=== PATIENT | female | born 1995 | race African-American/Black ===

== ENCOUNTER 2023-08-05 16:46 | Inpatient (IN) | payer OTHER, SELFPAY ==
[2023-08-05] VITALS (8 sets, daily range): BP systolic 121–159; BP diastolic 75–97; PULSE 52–62; BMI 26.8
[2023-08-05 11:50] LABS: % Basophils 0.3 % (0-2); % Eosinophils 0.1 % (0-6); % Immature Granulocytes 0.3 % (0-0.5); % Monocytes 6.4 % (1.7-9.3); % Neutrophils 80.9 % (42.2-75.2); Absolute Lymphocytes 1.2 10^3/uL (1.2-3.4); Absolute Monocytes 0.6 10^3/uL (0.1-0.6); Absolute Neutrophils 8.1 10^3/uL (1.4-6.5); Hematocrit 33.5 % (37.0-47.0); Hemoglobin 11.3 g/dL (12.0-16.0); Mean Corp Hgb Conc. 33.7 g/dL (33.0-37.0); Mean Corpuscular Volume 91.8 fL (81.0-99.0); Nucleated Red Blood Cells % 0 %; Platelet Count 211 10^3/uL (130-400); Red Blood Cell Count 3.65 10^6/uL (4.20-5.40); Red Cell Dist. Width 13.1 % (11.5-14.5)
[2023-08-05 12:05] LABS: ALT (SGPT) 16 U/L (0-35); AST (SGOT) 26 U/L (14-36); Albumin 4.1 g/dl (3.5-5.0); Alkaline Phosphatase 57 U/L (38-126); Blood Urea Nitrogen 9 mg/dl (7-17); Calcium 9.7 mg/dl (8.4-10.2); Carbon Dioxide 19 mmol/L (22-30); Chloride 105 mmol/L (98-107); Glucose 101 mg/dl (70-99); Potassium 3.6 mmol/L (3.5-5.1); Sodium 134 mmol/L (135-145); Total Bilirubin 0.9 mg/dl (0.2-1.3); Total Protein 6.6 g/dl (6.3-8.2); eGFR > 60.00
[2023-08-05 12:06] LABS: Urine Albumin Trace (Neg - Trace); Urine Bilirubin 1+ (Negative); Urine Character Slightly Cloudy (Clear); Urine Color Yellow; Urine Glucose Negative (Negative); Urine Ketone 3+ (Negative); Urine Leukocyte Negative (Negative); Urine Nitrite Negative (Negative); Urine Occult Blood Negative (Negative); Urine Specific Gravity 1.025 (<1.030); Urine Urobilinogen 1+ (Neg - 1+)
--- NOTE | 2023-08-05 12:23 | ED.GENMED ---
History of Present Illness
General
Chief Complaint: Abdominal Pain
Source: patient
Exam Limitations: none
Time Seen by Provider: 08/05/23 12:19
Nursing documentation reviewed up to this point in time: agreed with
History of Present Illness
History of Present Illness:
Patient is a 27 year old female presenting to the emergency department for evaluation of abdominal pain. Patient reports ongoing abdominal pain associated with nausea and vomiting over the past 2 weeks. This initially started after eating tacos
with spicy peppers. She was seen in multiple hospitals over the past 2 weeks. She was started on a course of antibiotics which she has taken very intermittently due to not able to keep them down. She was recently seen in a hospital 2 days ago
where she had normal lab work and a negative abdominal ultrasound and was discharged. She was then seen in the same hospital yesterday where she had a negative CAT scan but was admitted for observation. Patient states she left in the middle the
night.
She came to the hospital today due to persistence of symptoms. She states she is not able to keep anything down. She has not eaten anything in 4 days.
Patient endorses subjective fever/chills. She reports intermittent diarrhea/constipation over the past 2 weeks. Patient denies any urinary symptoms.
Patient denies any recent travel or recent hospitalizations prior to onset of symptoms.
Past History
Past History
ED Past Medical History: Psychiatric
ED Past Surgical History: Other
Social History
Tobacco: Smoker
Alcohol: Occasional
Drug: Marijuana
Personal: Other
Living: with family
Employment: Other
Family History
Family History: Other
Review of Systems
Review of Systems
Allergies reviewed?: Yes
All Other Systems: ROS reviewed and negative except as documented in HPI and ROS
Phy Exam
Physical Exam
Physical Exam:
Vitals: Patient's vital signs are stable. Afebrile
General: Patient is anxious appearing, no acute distress. Nontoxic-appearing
Skin: Warm and dry, no rashes or lesions
Head: Normocephalic, atraumatic
Eyes: Sclera nonicteric. EOMs intact. No nystagmus.
Throat: Protecting airway
Neck: Normal ROM, no cervical spine tenderness, no meningismus
Cardiac: Regular rate and rhythm, no murmurs.
Pulm: Normal respiratory effort, no wheezes, rales, rhonchi heard on exam.
Abdomen: Abdomen soft. Mild epigastric tenderness without rebound tenderness or guarding. No CVA tenderness. No bruising
Extremities: No evidence of cyanosis or edema. Great distal pulses
Neuro: AAOx3. CN II-XII intact. No focal neurologic deficits.
Psychiatric: Anxious
Course
Orders/Labs/Results
Orders:
Orders
08/05/23 11:27
EKG [Electrocardiogram (*1)] Urgent
Reason for Study: Chest Pain
EKG- Treatment ONCE
08/05/23 11:29
CMP [Comprehensive Metabolic Panel] Urgent
Complete Blood Count/With Diff Urgent
HCG, Serum Qualitative Screen Urgent
Comment: ADD ON
Lipase Urgent
Comment: ADD ON
Urinalysis Reflex To Culture Urgent
Date Specimen was Collected: 08/05/23
Time Specimen was Collected: 11:21
08/05/23 12:37
0.9% Sodium Chloride 1000 ml [Nss] 1,000 ml IV BOLUS
Famotidine [Pepcid] 20 mg IV NOW STA
Ketorolac [Toradol] 15 mg IV NOW STA
Ondansetron Injectable [Zofran] 4 mg IV NOW STA
08/05/23 12:38
Add On- LAB Urgent
Tests Added?: serum hcg, lipase
08/05/23 14:33
Morphine Sulfate 2 mg IV NOW STA
Piperacillin/Tazo 3.375 Gram [Zosyn] 3.375 gram in 50 ml IV NOW
08/05/23 16:36
Admit/Transfer Patient As Directed
Co-Sign Provider:
Level of Care: Inpatient admission
Assign to:: Medical/Surgical
Physician / Group: Hospitalist
Diagnosis: Abd pain, anemia
Reason for Hospitalization: Abd pain, anemia
Expected length of stay greater than two midnights?: Yes
ELOS- Estimated Length of Stay in days: 3
I certify the patient meets the requirements for IP care: Yes
08/05/23 16:37
Code Status As Directed
Resuscitation Status: Full Code
08/05/23 17:22
0.9% Sodium Chloride 1000 ml [Nss] 1,000 ml IV 100 mls/hr
Dicyclomine [Bentyl] 20 mg PO BIDPRN PRN
Morphine Sulfate 2 mg IV Q4HPRN PRN
08/05/23 17:22
GASTROINTESTINAL CONSULT Routine
Consulting Provider: Janusz Durant
Was physician already notified: Yes
Reason for consult: Abd pain with new anemia
Stool Culture Routine
MILLER Source: Feces/Stool
Specimen Description:
Stool For WBC Routine
MILLER Source: Feces/Stool
Specimen Description:
Activity As Directed
Activity Level: Ambulate
INT (Intravenous Needle Therapy) As Directed
Comment: Place 2 IV catheters of the largest bore possible until stable
Orthostatic Vital Signs As Directed
Orthostatic VS Frequency: Now
Comment: then every four hours for twenty-four hours
Pneumatic Compression Sleeves As Directed
Type: Knee high
Stool for occult blood [Hemetest Stools] As Directed
Vital Signs As Directed
Frequency: Per unit guidelines
DX Deep Vein Thrombosis Video Routine
08/05/23 20:00
Pantoprazole [Protonix] 40 mg PO BID
Piperacillin/Tazo 4.5 Gram [Zosyn] 4.5 gram in 100 ml IV Q6H
08/05/23 22:00
Trazodone [Desyrel] 100 mg PO HS
08/06/23 05:34
Basic Metabolic Panel IN AM
Complete Blood Count/No Diff IN AM
08/06/23 08:00
Aripiprazole [Abilify] 1 mg PO DAILY
Abnormal Lab Results
08/05/23
11:29
RBC 3.65 L 10^6/uL
(4.20-5.40)
Hgb 11.3 L g/dL
(12.0-16.0)
Hct 33.5 L %
(37.0-47.0)
MPV 11.0 H fL
(7.4-10.4)
Absolute Neuts (auto) 8.1 H 10^3/uL
(1.4-6.5)
Neutrophils % 80.9 H %
(42.2-75.2)
Lymphocytes % 12.0 L %
(20.5-51.1)
Sodium 134 L mmol/L
(135-145)
Carbon Dioxide 19 L mmol/L
(22-30)
Glucose 101 H mg/dl
(70-99)
Urine Ketones 3+ A
(Negative)
Urine Bilirubin 1+ A
(Negative)
08/05/23 11:29
08/05/23 11:29
Vital Signs
Initial and Last Documented VS:
Initial Vital Signs
Temp Pulse Resp BP Pulse Ox
98.6 F 61 10 159/81 100
08/05/23 11:15 08/05/23 11:15 08/05/23 11:15 08/05/23 11:15 08/05/23 11:15
Last Documented Vital Signs
Temp Pulse Resp BP Pulse Ox
97.8 F 57 16 108/68 98
08/06/23 07:30 08/06/23 07:30 08/06/23 07:30 08/06/23 07:30 08/06/23 08:00
MDM/Problems Addressed
Differential Diagnosis Includes:
Not limited to: GERD, IBS, colitis, gastritis, biliary colic, pancreatitis
MDM/Problems Addressed:
27-year-old female presenting to the emergency department w/ persistent abdominal discomfort associate with nausea and vomiting over the past few weeks. She was seen at [facility]'s emergency department 3 times past week admitted last night and
then left AMA. Per patient�she has been unable to keep down any food/liquid for the past 4 days�unable to take antibiotics are prescribed to her. Vital stable on arrival. Afebrile. Physical exam as above. Nontoxic-appearing. She has mild
epigastric tenderness without any rebound tenderness or guarding. Heart regular rate and rhythm. Lungs clear bilaterally. Labs reviewed. No leukocytosis. Mild anemia hemoglobin 11.3. Mild hyponatremia with sodium of 134. No other clinically
significant abnormalities. Urinalysis shows no signs of infection. EKG without any acute ischemic changes. Will give fluids, Zofran, Toradol. Will try pantoprazole if symptoms related to GERD.
Did obtain records from [facility] and spoke to nurse manager technical services from emergency department. CT scan of the abdomen showed findings consistent with a colitis. She also had an unremarkable pelvic ultrasound, chest x-ray. Given patient's persistent
symptoms and unable to tolerate p.o. intake�will plan to admit to hospital for IV antibiotics and further management. Likely require GI consult. Discussed with hospitalist. Patient admitted to hospital.
Chronic conditions affecting care:
N/A
Acute Exacerbation and/or Progression of Chronic Illness:
N/A
*Pulse Oximetry
Patient hypoxic: no
*EKG
Interpreted by ED Provider?: Yes
EKG Intrepretation Date: 08/05/23
Interpretation: abnormal
Comparison EKG: no comparison EKG present
Heart Rate: 55
Rate: bradycardiac
Rhythm: sinus
Ischemia: no ischemia
*Smoked Meat Preparer Interpretation
Rate: Smoked Meat Preparer- N/A
*Critical Care Note
Total Time (30-74mins, 75-104mins- exclusive of procedures): Not Applicable
Data Reviewed
Review of Other/Old Records Reveals: Labs, Records and Radiology Studies
Source: previous radiology exam and previous hospital records ([facility])
Patient Management
Discussion with other providers: Hospitalist
Escalation/DeEscalation of care consider admission/obs:
Admission for IV antibiotics given unable to tolerate p.o.; further evaluation by GI
ED Attending Note
-
Portions of this chart may have been created with voice recognition software.� Occasional wrong word or��sound alike� substitutions may have occurred due to the inherent limitations of voice recognition software.
Discharge Plan
Departure
Patient Disposition: Admit
Date of Disposition: 08/05/23
Time of Disposition: 14:39
Presentation/result/management discussed w/ accepting MD/DO: Hospitalist
Discharge Problem:
Colitis, Intractable nausea and vomiting
Interventions
Interventions:
*Risk Screen - Suicide Last Done: 08/05/23 12:47
*General Assessment Last Done: 08/05/23 12:47
*Neglect/Abuse Screening Last Done: 08/05/23 12:47
ED- Fall Risk Assessment Last Done: 08/05/23 13:37
*ED COVID-19 Vaccine History Last Done: 08/05/23 12:47
*Nursing Disposition Last Done: 08/05/23 17:19
LD-Pwubnz-Ccyekarscv Assessment Last Done: 08/05/23 13:37
Discharge Date and Time
Discharge Date/Time: 08/05/23 17:19
[2023-08-05] MEDS: NSS 1000 IV ×2 (12:52→18:10)
[2023-08-05] MEDS: PEPCID 20 MG IV (12:53)
[2023-08-05] MEDS: TORADOL 15 MG IV (12:54)
[2023-08-05] MEDS: ZOFRAN 4 MG IV (12:54)
[2023-08-05 13:42] LABS: Lipase 144 U/L (23-300)
[2023-08-05] MEDS: MORPHINE SULFATE 2 MG IV ×3 (14:41→22:48)
[2023-08-05] MEDS: ZOSYN 50 IV (14:42)
[2023-08-05 14:44] LABS: HCG, Serum Qualitative Screen Negative
--- NOTE | 2023-08-05 16:21 | HPS.HSE ---
Family Physician
-
Family Physician: NOT KNOW UNKNOWN - PT DOES
Chief Complaint
-
Abd pain
History of Present Illness
27 year old woman presents with abdominal pain. She states that her ongoing abdominal pain is associated with nausea and vomiting, and has been happening over the past 2 weeks. Pain started after eating tacos with spicy peppers. She has been seen
in multiple hospitals over the past 2 weeks. She was started on a oral antibiotics, which she has taken intermittently, due to not able to keep them down. She was seen in a hospital 2 days ago, where she had normal lab work, a negative abdominal
ultrasound, and was discharged. She then went to the same hospital yesterday, where she had a negative CAT scan, and was admitted for observation. She left in the middle the night. She could not explain to me why she left. She came to today
due to persistence of pain, and not able to keep anything down. She states that has not eaten anything in 4 days. She states that she has had subjective fevers/chills. She reports intermittent diarrhea/constipation over the past 2 weeks. She
denies any urinary symptoms, any recent travel or recent hospitalizations prior to onset of symptoms.
Medical History
Past Medical History
Past Medical History: Reports Other
Additional Past Medical History:
Psychiatric
Past Surgical History: Reports None
Social History
Tobacco: Non-smoker
Alcohol: None
Drug: Marijuana
Personal:
Living: With Family
Employment: Not Employed
Family History
Family History: Not pertinent
Allergies / Home Medications
Allergies reflects when Allergies were last updated in [facility].
Home Medications with original date entered in [facility]
Allergy/Medication List:
Allergies
Allergy/AdvReac Type Severity Reaction Status Date / Time
No Known Allergies Allergy Unverified 08/14/22 14:14
Home Medications
Abilify Tab 1 tab PO DAILY 08/05/23
dicyclomine 20 mg tablet 20 mg PO BIDPRN PRN spasms 08/05/23
pantoprazole 40 mg tablet,delayed release (Protonix) 40 mg PO BID 08/05/23
trazodone 100 mg tablet 100 mg PO HS 08/05/23
Review of Systems
-
History Source: Patient
A 12 point ROS was completed and negative except as noted: Yes
Physical Exam
Vital Signs
Vital Signs
Temp Pulse Resp BP Pulse Ox
98.6 F 60 18 124/81 100
08/05/23 11:15 08/05/23 14:02 08/05/23 14:02 08/05/23 14:47 08/05/23 14:47
Physical Exam
General: Well Developed, Well Nourished, No Apparent Distress, Comfortable and Conversant
HEENT: NormoCephalic, Moist mucous membranes, Atraumatic, Good Dentition, [place] Conjunctivae, No Ptosis, Nose Appears Normal and Ears Appear Normal
Respiratory: Clear
Cardiac: S1/S2 and Regular Rhythm
GI: Soft and Tender (URQ, ULQ. No rebound, No guarding.)
Musculoskeletal: No Clubbing, No Cyanosis and No Edema
Skin: Warm and Dry; No Rash or Jaundice
Neuro: Awake, Alert, Oriented and AO x 3
Psych: Calm
Laboratory Results
-
08/05/23 11:29
08/05/23 11:29
Laboratory Results
Total Bilirubin 0.9 mg/dl (0.2-1.3) 08/05/23 11:29
AST 26 U/L (14-36) 08/05/23 11:29
ALT 16 U/L (0-35) 08/05/23 11:29
Alkaline Phosphatase 57 U/L (38-126) 08/05/23 11:29
Lipase 144 U/L (23-300) 08/05/23 11:29
Data Reviewed
-
Lab Data: Labs Reviewed by me
Impression/Plan
-
IMPRESSION:
27 woman with abd pain and the following significant findings
H/H 11.3/33.5, baseline appears to be 12.8/37.2
Na 134
ECG sinus john
PLAN:
1. Abd pain, with prior dx of colitis, Upper abd pain, and anemia, concern for bleeding ulcer
Guaiac stools
GI consult
IV abx for colitis
Stool cultures/analyses
2. Hyponatremia - likely hypovolemic hyponatremia
Saline
Re-check in am
3. ECG with sinus john - likely incidental finding without clinical significance
Full code
VCD for DVTp
[2023-08-05] MEDS: BENTYL 20 MG PO (18:17)
--- NOTE | 2023-08-05 19:44 | PTCARENOTE ---
Patient admitted from ER into room 412-01. Vital signs stable. Morphine 2 mg IV administered for pain. Rates pain in bilateral upper abdomen 10/10 on pain scale. Started on NSS IV at 100 mls/hour. Explained plan of care to patient. Reviewed use of
call man, television and bed controls. Patient verbalizes understanding of all teaching. Patient also understands to save her stool for heme testing and for a specimen. Clear liquid diet at this time. Tolerated dinner well.
--- NOTE | 2023-08-05 20:03 | PTCARENOTE ---
Sent 6 prescriptions to pharmacy. Patient will need them returned at discharge. No narcotics or other controlled substances.
[2023-08-05] MEDS: PROTONIX 40 MG PO (20:58)
[2023-08-05] MEDS: ZOSYN 100 IV (20:58)
[2023-08-05] MEDS: DESYREL 100 MG PO (22:47)
[2023-08-06] MEDS: ZOSYN 100 IV ×4 (02:48→20:30)
[2023-08-06] MEDS: NSS 1000 IV ×2 (05:58→16:23)
[2023-08-06 06:10] LABS: Blood Urea Nitrogen 7 mg/dl (7-17); Calcium 8.6 mg/dl (8.4-10.2); Carbon Dioxide 24 mmol/L (22-30); Chloride 109 mmol/L (98-107); Estimated Creatinine Clearance 84 ml/min; Glucose 93 mg/dl (70-99); Potassium 3.7 mmol/L (3.5-5.1); Sodium 138 mmol/L (135-145); eGFR > 60.00
[2023-08-06 06:11] LABS: Hematocrit 30.2 % (37.0-47.0); Mean Corp Hgb Conc. 33.1 g/dL (33.0-37.0); Mean Corpuscular Hgb 30.9 pg (27.0-31.0); Mean Corpuscular Volume 93.2 fL (81.0-99.0); Mean Platelet Volume 11.2 fL (7.4-10.4); Platelet Count 181 10^3/uL (130-400); Red Blood Cell Count 3.24 10^6/uL (4.20-5.40); Red Cell Dist. Width 13.1 % (11.5-14.5); White Blood Cell Count 7.1 10^3/uL (4.8-10.8)
[2023-08-06 07:30] VITALS: BP 108/68; BP 122/78; BP 123/88; BP 140/92; PULSE 49; PULSE 51; PULSE 53
[2023-08-06] MEDS: PROTONIX 40 MG PO ×2 (07:42→22:11)
[2023-08-06] MEDS: BENTYL 20 MG PO ×2 (07:42→22:10)
[2023-08-06] MEDS: ABILIFY 1 MG PO (07:42)
--- NOTE | 2023-08-06 09:09 | W.PN.HOSP.TC ---
Today's Communication/Plan
-
ct a/p
CLD, ADAT
GI consulted
EGD iN AM
pain control, anxiolytics
IVF
Assessment / Plan
Assessment / Plan
Physical Exam
General: Well Developed, Well Nourished, No Apparent Distress, Comfortable and Conversant
HEENT: NormoCephalic, Moist mucous membranes, Atraumatic, Good Dentition, [place] Conjunctivae, No Ptosis, Nose Appears Normal and Ears Appear Normal
Respiratory: Clear
Cardiac: S1/S2 and Regular Rhythm
GI: Soft and Tender (URQ, ULQ. No rebound, No guarding.)
Musculoskeletal: No Clubbing, No Cyanosis and No Edema
Skin: Warm and Dry; No Rash or Jaundice
Neuro: Awake, Alert, Oriented and AO x 3
Psych: Calm
27 woman with consistent abdominal pain
-Either Colitis v Psychosomatic, anxiety
-CT Imaging
-Cont Empiric Abx
-Stool cultures
-GI Consulted
-CLD
-Plan for EGD in AM
-Consider HIDA next or colonoscopy
-ativan prn
-pain control
# Hyponatremia
IVF
resolved
#Marijuana use
-cessation advised due to GI issues
Full code
HSQ
Total time spent on today's encounter was 50 minutes which included time spent in counseling the patient/family regarding diagnosis and treatment plan as listed above, goals of care, and symptom management. Case was discussed with nursing staff,
specialists, and care coordinators/case management. All labs and imaging personally reviewed by me. Remainder the time spent in detailed review of previous records, lab data, imaging, and other medical provider documentation.
Anticipated Discharge: 24 - 48 hours
Subjective/Interval History
-
Date of Service: August 06, 2023
could not tolerate low residue diet; severe pain
Objective Data
-
Labs:
Laboratory Results
08/06/23
05:34
WBC 7.1
Hgb 10.0 L
Hct 30.2 L
Plt Count 181
Sodium 138
Potassium 3.7
Chloride 109 H
Carbon Dioxide 24
BUN 7
Creatinine 1.0
Glucose 93
Calcium 8.6
Vital Signs:
Vital Signs
Temp Pulse Resp BP Pulse Ox
97.8 F 57 16 108/68 98
08/06/23 07:30 08/06/23 07:30 08/06/23 07:30 08/06/23 07:30 08/06/23 08:00
I&O
08/05/23 08/06/23 08/07/23
06:59 06:59 06:59
Intake Total 480 / 480
Balance 480 / 480
Review of Systems
-
History Source: Patient
All other systems: Not reviewed unless documented
Data Reviewed
-
Labs: Labs Reviewed by me
[2023-08-06] MEDS: MORPHINE SULFATE 2 MG IV (11:10)
[2023-08-06] MEDS: ZOFRAN 4 MG IV (11:36)
--- NOTE | 2023-08-06 11:45 | PTCARENOTE ---
Patient's diet advanced this AM from Clear Liquids to Low Residue. Patient was immediately doubled over with abdominal pain. Dr Skinner made aware. Dr Durant on unit and went to see patient bedside. Pain medication and anxiety medications ordered.
See APR. CT Abd/pelvis ordered and diet changed back to Clear Liquids per Dr Skinner orders. at bedside. Patient more comfortable. Will continue to monitor.
[2023-08-06] MEDS: TORADOL 15 MG IV (11:48)
--- NOTE | 2023-08-06 12:08 | CON.GI ---
Consultation
-
Date/Time Consultation Requested: 08/05/23 4:45pm
Date/Time Consultation Performed: 08/06/23 12:10pm
Requesting Provider: Nicholas Leroy
Performing Provider: Janusz Durant
Reason for Consultation: abdominal pain
Medical History
Chief Complaint / HPI
Chief Complaint: abdominal pain
History of Present Illness:
Patient is a 27-year-old female who presents with abdominal pain over the last 2 weeks that has been waxing and waning but unresolved. She has been seen several times at [facility] and underwent CAT scan that showed thickening the left colon and
constipation. She had ultrasound only notable for fibroid. She was felt to have a component of cannabis hyperemesis syndrome. She signed out AMA from the other hospital. She comes now with ongoing abdominal pain. This morning she was feeling
better and her diet was advanced to solid food. About 30 minutes later she began complaining of severe upper abdominal pain right greater than left and severe anxiety. She has a history of schizophrenia and takes Abilify. She does report rare
social use of marijuana. Prior to the last several weeks she rarely had episodes of abdominal pain after which she felt to be episodes of food poisoning. She denies NSAIDs.
Past Medical History
Past Medical History: Other (Schizophrenia, anxiety)
Past Surgical History: None
Social History
Drug: Marijuana (rare social use)
Family History
Family History: Reviewed & Not Pertinent
Allergies / Home Medications
Allergy/AdvReac Type Severity Reaction Status Date / Time
No Known Allergies Allergy Unverified 08/14/22 14:14
�Medication �Instructions �Recorded
Abilify Tab 1 tab PO DAILY 08/05/23
dicyclomine 20 mg tablet 20 mg PO BIDPRN PRN spasms 08/05/23
pantoprazole 40 mg tablet,delayed 40 mg PO BID 08/05/23
release (Protonix)
trazodone 100 mg tablet 100 mg PO HS 08/05/23
Review of Systems
-
All other systems: A 12 pt ROS was Negative except as stated above in HPI
Vital Signs
Temp Pulse Resp BP Pulse Ox
97.8 F 57 16 108/68 98
08/06/23 07:30 08/06/23 07:30 08/06/23 07:30 08/06/23 07:30 08/06/23 08:00
Physical Exam
Exam
General: Other (anxious, rocking in bed holding stomach)
HEENT: Normocephalic and Atraumatic
GI: Soft and Tender (RUQ/epigastric)
Skin: Warm and Dry
Results
WBC 7.1 10^3/uL (4.8-10.8) 08/06/23 05:34
Hgb 10.0 g/dL (12.0-16.0) L 08/06/23 05:34
Hct 30.2 % (37.0-47.0) L 08/06/23 05:34
MCV 93.2 fL (81.0-99.0) 08/06/23 05:34
Plt Count 181 10^3/uL (130-400) 08/06/23 05:34
Absolute Neuts (auto) 8.1 10^3/uL (1.4-6.5) H 08/05/23 11:29
Sodium 138 mmol/L (135-145) 08/06/23 05:34
Potassium 3.7 mmol/L (3.5-5.1) 08/06/23 05:34
Chloride 109 mmol/L (98-107) H 08/06/23 05:34
Carbon Dioxide 24 mmol/L (22-30) 08/06/23 05:34
BUN 7 mg/dl (7-17) 08/06/23 05:34
Creatinine 1.0 mg/dL (0.6-1.0) 08/06/23 05:34
Calcium 8.6 mg/dl (8.4-10.2) 08/06/23 05:34
Total Bilirubin 0.9 mg/dl (0.2-1.3) 08/05/23 11:29
AST 26 U/L (14-36) 08/05/23 11:29
ALT 16 U/L (0-35) 08/05/23 11:29
Alkaline Phosphatase 57 U/L (38-126) 08/05/23 11:29
Lipase 144 U/L (23-300) 08/05/23 11:29
Diagnostic Image Results:
Prior GI Procedures:
EGD:
Colonoscopy:
Assessment / Plan
-
Summary: 27yo female presents with 2 weeks epigastric/RUQ pain recently seen at [facility], signed out AMA. CT shows L colon thickening, US showed fibroid. Eval reported concern for canabis hyperemesis syndrome, but pt reports only rare social
use. Tried eating solid food 08/05 then began with severe RUQ pain
Impression:
RUQ pain
Schizophrenia
Anxiety
Recommendations:
Agree with repeat CT abd/pelvis, see if there is persistent colonic thickening
Plan on EGD in AM to r/o PUD
Keep on clears
Anxiety rx as this is likely magnifying her symptoms
Consider HIDA next or colonoscopy
Advised marijuana cessation
-
-
Thank you for consultation and allowing me to participate in the patient's care. Please call the ammunition storekeeper GI physician during the after hours with any questions or concerns.
[2023-08-06] MEDS: NSS (PRESERVATIVE FREE) 0.5 ML IV (12:26)
[2023-08-06] MEDS: ATIVAN 1 MG IV (12:26)
[2023-08-06 15:00] VITALS: BP 138/83
[2023-08-06] MEDS: DILAUDID 0.25 MG IV ×3 (15:02→22:10)
[2023-08-06] MEDS: CARAFATE 1 GRAM PO (16:20)
[2023-08-06] MEDS: HEPARIN 5000 UNITS SC (16:24)
[2023-08-06] MEDS: DESYREL 100 MG PO (22:10)
[2023-08-06 23:41] VITALS: BP 128/79
[2023-08-07] VITALS (7 sets, daily range): BP systolic 12–138; BP diastolic 70–100
[2023-08-07] MEDS: HEPARIN 5000 UNITS SC ×2 (00:45→16:25)
[2023-08-07] MEDS: NSS 1000 IV ×2 (00:50→16:26)
[2023-08-07] MEDS: ZOSYN 100 IV (01:10)
[2023-08-07] MEDS: DILAUDID 0.25 MG IV ×4 (01:10→21:35)
[2023-08-07 07:57] LABS: Hematocrit 33.8 % (37.0-47.0); Hemoglobin 11.2 g/dL (12.0-16.0); Mean Corp Hgb Conc. 33.1 g/dL (33.0-37.0); Mean Corpuscular Hgb 30.9 pg (27.0-31.0); Mean Corpuscular Volume 93.1 fL (81.0-99.0); Mean Platelet Volume 11.2 fL (7.4-10.4); Platelet Count 188 10^3/uL (130-400); Red Blood Cell Count 3.63 10^6/uL (4.20-5.40); White Blood Cell Count 7.7 10^3/uL (4.8-10.8)
[2023-08-07 08:25] LABS: ALT (SGPT) 21 U/L (0-35); AST (SGOT) 29 U/L (14-36); Albumin 3.7 g/dl (3.5-5.0); Alkaline Phosphatase 48 U/L (38-126); Blood Urea Nitrogen 6 mg/dl (7-17); Calcium 9.1 mg/dl (8.4-10.2); Carbon Dioxide 23 mmol/L (22-30); Chloride 107 mmol/L (98-107); Estimated Creatinine Clearance 84 ml/min; Glucose 93 mg/dl (70-99); Potassium 3.6 mmol/L (3.5-5.1); Sodium 137 mmol/L (135-145); Total Bilirubin 0.7 mg/dl (0.2-1.3); Total Protein 5.9 g/dl (6.3-8.2); eGFR > 60.00
--- NOTE | 2023-08-07 08:56 | W.PN.HOSP.TC ---
Today's Communication/Plan
-
see bold
Assessment / Plan
Assessment / Plan
Pt seen and examined with nurse Candice Carroll present at bedside:
Gen: NAD, AAOx3.
Eyes: EOMI, PERRLA, no scleral icterus.
Neck: supple.
CV: RRR, +S1/S2, no m/r/g.
Resp: CTAB, no rales, wheezes, or rhonchi.
Abd: +BS, soft, RUQ and epigastric TTP, ND
Skin: No rashes.
Neuro: CN 2-12 intact, non-focal.
Psych: Normal mood and affect.
CT A/P w/IV 08/06/23: Markedly limited evaluation of intestinal tract without oral contrast as well as a result of marked paucity of intra-abdominal fat, without findings to suggest intestinal obstruction. No free air. Small volume free fluid in the
dependent true pelvis of uncertain etiology, possibly the sequela of recently ruptured adnexal/ovarian cyst. Markedly limited evaluation of virtually completely empty, unopacified urinary bladder. Cannot exclude small hiatal hernia. Mild
hepatomegaly.
Abdominal pain':
-CT A/P (no PO contrast) without colitis, afebrile, no leukocytosis, hemodynamically stable
-GI following, EGD today
-stop abx as no evidence of infection
-pain control with Toradol (no indication for narcotics)
Other problems:
Hyponatremia, resolved with IVFs
Marijuana use: cessation advised due to GI issues
FULL/Heparin
Anticipated Discharge: Within 24 hours
Subjective/Interval History
-
Date of Service: August 07, 2023
Reports anxiety and waves of RUQ and epigastric abd pain.
Objective Data
-
Labs:
Laboratory Results
08/07/23
07:33
WBC 7.7
Hgb 11.2 L
Hct 33.8 L
Plt Count 188
Sodium 137
Potassium 3.6
Chloride 107
Carbon Dioxide 23
BUN 6 L
Creatinine 1.0
Glucose 93
Calcium 9.1
Total Bilirubin 0.7
AST 29
ALT 21
Alkaline Phosphatase 48
Vital Signs:
Vital Signs
Temp Pulse Resp BP Pulse Ox
98.5 F 52 20 136/77 99
08/07/23 07:39 08/07/23 07:39 08/07/23 07:39 08/07/23 07:39 08/07/23 07:39
I&O
08/06/23 08/07/23 08/08/23
06:59 06:59 06:59
Intake Total 480 / 480 480 / 480
Balance 480 / 480 480 / 480
[2023-08-07] MEDS: ZOSYN IV (09:11)
[2023-08-07] MEDS: ABILIFY PO (09:13)
[2023-08-07] MEDS: HEPARIN SC ×3 (09:14→23:05)
[2023-08-07] MEDS: PROTONIX PO (09:15)
--- NOTE | 2023-08-07 10:00 | PTCARENOTE ---
Pt is off the floor at this time for EGD.
--- NOTE | 2023-08-07 10:10 | W.PN.UPDATE ---
Update Note
Progress Note Update
EGD done
Grade A esophagitis- bx'd
Erythema cardia- bx'd
Bx taken r/o HP and celiac
REC:
Resume regular diet
Await path
CT scan was markedly limited but did show some free pelvic fluid
If recurrent pain, consider Learning [employer] Instructor consult next
Also consider HIDA scan
--- NOTE | 2023-08-07 11:18 | CM ---
Patient seen bedside with , initial assessment completed. Patient resides with in an apartment, no DME, VN, or SNF, independent with ADLs/IADLS. Patient reports she does have a PCP, reports she is unsure of PCP name as she does not go
to doctors frequently. Patient confirms pharmacy used [facility]. Patient inquiring about family planning and information regarding assistance in getting other than IVF. [facility] CM will continue to
follow for discharge planning needs.
Plan; home no needs anticipated.
[2023-08-07] MEDS: ABILIFY 1 MG PO (11:28)
[2023-08-07] MEDS: PROTONIX 40 MG PO ×2 (11:28→20:29)
[2023-08-07] MEDS: TORADOL 15 MG IV (11:55)
[2023-08-07] MEDS: BENTYL 20 MG PO (11:55)
[2023-08-07] MEDS: ZOFRAN 4 MG IV (12:42)
[2023-08-07] MEDS: ATIVAN 1 MG IV (12:59)
[2023-08-07] MEDS: NSS (PRESERVATIVE FREE) 0.5 ML IV (12:59)
--- NOTE | 2023-08-07 13:05 | PTCARENOTE ---
Pt returned from EGD and took two small pills orally with sip of gingerale and shortly after was writhing in pain / screaming reporting 10/10 sharp RUQ pain which she states is the same pain that initially brought her in. Toradol and bentyl given at
1155. Pt is vomiting frothy emesis spotted with what appears to be maroon colored blood. Zofran given at 1242. Dr. Durant and Dr. Liang notified and Dr. Durant is planning to come to bedside to speak with patient. Pt extremely anxious, pacing in room
and hallway yelling. Pt agreeable to take IV ativan at 1300.
--- NOTE | 2023-08-07 13:21 | W.PN.UPDATE ---
Update Note
Progress Note Update
Called back to see pt due to severe abd pain even prior to eating
Writhing in pain in bed with emesis basin
REC:
Check HIDA/CCK
Resume dilaudid 0.25mg q3h
Diet as tolerated
Await path
--- NOTE | 2023-08-07 14:06 | PTCARENOTE ---
Pt is off the floor for Hida scan.
[2023-08-07] MEDS: COMPAZINE 10 MG IV (17:59)
--- NOTE | 2023-08-07 20:08 | PTCARENOTE ---
Addendum entered by Mary Carroll RN 08/07/23 20:09:
Dilaudid brought pain down to 8/10 from 10 and patient somewhat more calm, lying in bed. Pt requested dilaudid again at 1750 and it was administered.
Original Note:
Pt returned to floor after being unable to tolerate Hida scan due to vomiting and pain. IV dilaudid administered at 1420 upon return.
[2023-08-07] MEDS: DESYREL 100 MG PO (21:35)
[2023-08-08] MEDS: DILAUDID 0.25 MG IV (01:36)
[2023-08-08] MEDS: NSS 1000 IV (03:56)
--- NOTE | 2023-08-08 09:09 | W.PN.HOSP.TC ---
Today's Communication/Plan
-
d/c if HIDA unremarkable
Assessment / Plan
Assessment / Plan
Pt seen and examined with nurse Kortney Engle present at bedside:
Gen: NAD, AAOx3.
Eyes: EOMI, PERRLA, no scleral icterus.
Neck: supple.
CV: remains RRR, +S1/S2, no m/r/g.
Resp: remains CTAB, no rales, wheezes, or rhonchi.
Abd: +BS, soft, mild RUQ and epigastric TTP, ND
Skin: No rashes.
Neuro: CN 2-12 intact, non-focal.
Psych: Normal mood and affect.
CT A/P w/IV 08/06/23: Markedly limited evaluation of intestinal tract without oral contrast as well as a result of marked paucity of intra-abdominal fat, without findings to suggest intestinal obstruction. No free air. Small volume free fluid in the
dependent true pelvis of uncertain etiology, possibly the sequela of recently ruptured adnexal/ovarian cyst. Markedly limited evaluation of virtually completely empty, unopacified urinary bladder. Cannot exclude small hiatal hernia. Mild
hepatomegaly.
Abdominal pain':
-CT A/P (no PO contrast) without colitis, afebrile, no leukocytosis, hemodynamically stable
-GI following
-EGD 08/07/23: Grade A esophagitis- bx'd, Erythema cardia- bx'd, Bx taken r/o HP and celiac
-HIDA today
Other problems:
Hyponatremia, resolved with IVFs
Marijuana use: cessation advised due to GI issues
FULL/Heparin
Anticipated Discharge: Today
Subjective/Interval History
-
Date of Service: August 08, 2023
Patient reports minimal abdominal pain and is asking to go home at this time.
Objective Data
-
Vital Signs:
Vital Signs
Temp Pulse Resp BP Pulse Ox
98 F 46 16 118/70 98
08/07/23 23:49 08/07/23 23:49 08/07/23 23:49 08/07/23 23:49 08/07/23 23:49
I&O
08/07/23 08/08/23 08/09/23
06:59 06:59 06:59
Intake Total 480 / 480 2810 / 2810
Output Total 200 / 200
Balance 480 / 480 2610 / 2610
--- NOTE | 2023-08-08 09:21 | PTCARENOTE ---
2mg morphine given IVP in nuc med at 0915; VS pre administration BP 138/94 HR 109 96% RA; Post administration VS BP143/93 HR 74 100% RA
[2023-08-08 11:30] VITALS: BP 139/87
[2023-08-08] MEDS: PROTONIX 40 MG PO ×2 (11:36→19:49)
[2023-08-08] MEDS: ABILIFY 1 MG PO (11:36)
[2023-08-08] MEDS: HEPARIN 5000 UNITS SC ×2 (11:37→15:48)
[2023-08-08] MEDS: BENTYL 20 MG PO (12:48)
--- NOTE | 2023-08-08 13:00 | PTCARENOTE ---
Patient returned for HIDA scan and ate lunch. Patient states, 'I feel good. I was able to keep my food down. I want to go home.' 'When can I go home?'
--- NOTE | 2023-08-08 13:00 | PTCARENOTE ---
Patient crying, rocking back and forth in bed, wrenching into basin. Patient vomited small amount of food. Patient states, 'Help me, Help me. I need Tylenol for my menstrual cramps, medication for my nausea.' Patient yelling and moaning, holding
kpad on stomach. IV needs to be restarted. 1330 Tylenol, Ativan and Zofran given for pain, nausea and anxiety. 1345 Patient now lying flat on her stomach, sleeping with no s/s of discomfort.
--- NOTE | 2023-08-08 13:15 | W.PN.GI.CBS2 ---
Today's Communication / Plan
-
Please see assessment and plan for details.
Assessment / Plan
-
1. Abdominal pain: With some biliary component, with CT scan and endoscopy, and labs otherwise unremarkable, with abnormal HIDA scan with only trace amount of tracer in gallbladder, likely from injection yesterday, still abnormal response today. I
think that the severity of her symptoms is likely more related to in part her anxiety as she states to me that she feels very anxious when she has pain. Her exam is relatively benign, has no fever or leukocytosis. Surgery has been consulted for
possible chronic cholecystitis, await their evaluation, could consider further imaging such as ultrasound, and possibly pelvic ultrasound given small mount of fluid seen in the pelvis on CT scan. Would continue supportive care, anxiolytics etc.
Subjective
Subjective
Date of Service: August 08, 2023
Patient still complaining of pain and vomiting, has been doing okay though after eating had recurrent severe pain. She describes as sharp, epigastric with some radiation to the right side and back.
Objective
Data Reviewed
Laboratory Data:
Laboratory Results
08/07/23 07:33
08/07/23 07:33
Laboratory Results
Total Bilirubin 0.7 mg/dl (0.2-1.3) 08/07/23 07:33
AST 29 U/L (14-36) 08/07/23 07:33
ALT 21 U/L (0-35) 08/07/23 07:33
Alkaline Phosphatase 48 U/L (38-126) 08/07/23 07:33
Lipase 144 U/L (23-300) 08/05/23 11:29
Vital Signs and I&O:
Vital Signs
Temp Pulse Resp BP Pulse Ox
98.6 F 51 16 139/87 100
08/08/23 11:30 08/08/23 11:30 08/08/23 11:30 08/08/23 11:30 08/08/23 11:30
I&O
08/07/23 08/08/23 08/09/23
06:59 06:59 06:59
Intake Total 480 / 480 2810 / 2810
Output Total 200 / 200
Balance 480 / 480 2610 / 2610
Physical Exam
Physical Exam
General: NAD
Abdomen: normal bowel sounds, soft, mild epigastric tenderness, no masses or bruits, no ascites
[2023-08-08] MEDS: TYLENOL 650 MG PO ×2 (13:36→19:50)
[2023-08-08] MEDS: ZOFRAN 4 MG IV ×2 (13:38→19:53)
[2023-08-08] MEDS: ATIVAN 1 MG IV ×2 (13:40→19:53)
[2023-08-08] MEDS: NSS IV (14:21)
[2023-08-08 15:40] VITALS: BP 138/84
[2023-08-08] MEDS: TORADOL 15 MG IV ×2 (15:48→21:48)
--- NOTE | 2023-08-08 16:25 | PTCARENOTE ---
Patient was sleeping, then woke when RN was in room. Patient states, 'I am in so much pain. I have menstrual pain on top of my abdominal pain.' RN reminded patient she received Tylenol, Bentyl and Toradol for pain already. Patient jumped out of bed
and confronted RN. Patient was yelling that the doctors have not found out what is wrong with her and she is just going to leave the hospital. Patient was verbally aggressive and demanding RN tell her what is going on. RN repeated multiple times the
plan of care. RN asked patient to stop yelling and patient started yelling louder. RN left the room.
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
--- NOTE | 2023-08-08 16:58 | CON.GS ---
Medical History
-
Chief Complaint: Abdominal pain
History of Present Illness:
Patient is a 27 yo F with a PMH notable for Schizophrenia, anxiety, and depression. She states that over the past 2 weeks she has had constant upper abdominal discomfort with intermittent stabbing attacks of pain. Pain worsened by oral intake.
Subjective fevers and chills. Reports constipation. Subjective darker urine. No jaundice. No excessive NSAID use. Currently on PPI. In and out of hospitals signing herself out AMA over the past 2 weeks. GI on board. EGD on 08/04 with mild
esophagitis, mild gastritis (biopsies pending), normal duodenum, no clear evidence of ulcerative disease.
Past Medical History
Past Medical History: Psychiatric (Schizophrenia, anxiety, depression)
Past Surgical History: None
Social History
Tobacco: Non-Smoker
Alcohol: None
Drug: Marijuana
Personal:
Living: With Family
Employment: Not Employed
Family History
Family History: Reviewed & Noncontributory
Allergies / Home Medications
Allergy/AdvReac Type Severity Reaction Status Date / Time
No Known Allergies Allergy Unverified 08/14/22 14:14
�Medication �Instructions �Recorded �Confirmed �Type
Abilify Tab 1 tab PO DAILY 08/05/23 08/05/23 History
dicyclomine 20 mg tablet 20 mg PO BIDPRN PRN spasms 08/05/23 08/05/23 History
pantoprazole 40 mg tablet,delayed 40 mg PO BID 08/05/23 08/05/23 History
release (Protonix)
trazodone 100 mg tablet 100 mg PO HS 08/05/23 08/05/23 History
Review of Systems
-
A 10 point review of systems was completed, and was negative except as per HPI.
Physical Exam
Vital Signs
Temp Pulse Resp BP Pulse Ox
98.7 F 54 18 138/84 100
08/08/23 15:40 08/08/23 15:40 08/08/23 15:40 08/08/23 15:40 08/08/23 15:40
Body Mass Index (BMI) 26.8
Lab Results
08/07/23 07:33
08/07/23 07:33
WBC 7.7 10^3/uL (4.8-10.8) 08/07/23 07:33
Hgb 11.2 g/dL (12.0-16.0) L 08/07/23 07:33
Hct 33.8 % (37.0-47.0) L 08/07/23 07:33
Plt Count 188 10^3/uL (130-400) 08/07/23 07:33
Abs Immat Gran (auto) 0.0 10^3/uL (0-0.05) 08/05/23 11:29
Neutrophils % 80.9 % (42.2-75.2) H 08/05/23 11:29
Physical Exam
General: Well Developed, Well Nourished and No Apparent Distress
HEENT: Normocephalic and Anicteric
Respiratory: Non Labored Respirations
Cardiac: Regular Rhythm
GI: Soft, Non Distended, Tender (Upper abdomen, negative Henry's sign) and Other (Non-peritoneal)
Musculoskeletal: No Edema
Skin: Warm and Dry
Neuro: Nonfocal/Grossly Intact
Data Reviewed
-
CT Scan: Image Personally Visualized and interpreted and Report Reviewed by me
Medical Tests (Nuc Med, Echo etc): Image Personally Visualized and interpreted and Report Reviewed by me
Labs: Labs Reviewed by me
Assessment / Plan
-
Patient is a 27 yo F p/w upper abdominal pain of unknown origin
Differential for abdominal pain remains broad. Unknown exact cause, appears to have a psychological and potential drug seeking aspect to her care. Recommend ultrasound for further workup and evaluation of stones and signs of cholecystitis. HIDA
scan with delayed filling of gallbladder, but ultimately filling ruling out acute cholecystitis. Possible component of chronic cholecystitis. No plans for cholecystectomy at this time.
-- Abdominal ultrasound
-- OK for regular diet
[2023-08-08] MEDS: NSS (PRESERVATIVE FREE) 0.5 ML IV (19:54)
[2023-08-08] MEDS: DESYREL 100 MG PO (21:13)
[2023-08-08] MEDS: FLUSH (NSS) 1 FLUSH IV (21:47)
[2023-08-08 23:04] VITALS: BP 164/98
[2023-08-09] MEDS: HEPARIN SC (00:09)
[2023-08-09] MEDS: NSS IV (00:46)
[2023-08-09] MEDS: NSS 1000 IV (03:44)
[2023-08-09] MEDS: TYLENOL 650 MG PO (04:08)
[2023-08-09] MEDS: TORADOL 15 MG IV (04:08)
[2023-08-09] MEDS: ATIVAN 1 MG IV (04:09)
[2023-08-09] MEDS: NSS (PRESERVATIVE FREE) 0.5 ML IV (04:09)
--- NOTE | 2023-08-09 07:21 | W.PN.GI.CBS2 ---
Today's Communication / Plan
-
Please see assessment and plan for details.
Assessment / Plan
-
1. Abdominal pain: Unclear etiology, with extensive workup which has been mostly unremarkable including multiple ultrasound, CAT scan, endoscopy and labs. HIDA scan did show delayed filling of gallbladder though did fill ultimately, and has no
significant tenderness now in the right upper quadrant. Again, unclear etiology of pain and vomiting. There is a question of possible cannabis hyperemesis and visceral hypersensitivity, though again unclear what other tests to perform at this
point. Would continue supportive care, trend labs.
Subjective
Subjective
Date of Service: August 09, 2023
Patient sleeping this morning, still complains of abdominal pain overnight, not really tolerating any significant oral intake. No signs of bleeding, fever or chills.
Objective
Data Reviewed
Laboratory Data:
Laboratory Results
08/07/23 07:33
08/07/23 07:33
Laboratory Results
Total Bilirubin 0.7 mg/dl (0.2-1.3) 08/07/23 07:33
AST 29 U/L (14-36) 08/07/23 07:33
ALT 21 U/L (0-35) 08/07/23 07:33
Alkaline Phosphatase 48 U/L (38-126) 08/07/23 07:33
Lipase 144 U/L (23-300) 08/05/23 11:29
Vital Signs and I&O:
Vital Signs
Temp Pulse Resp BP Pulse Ox
98.7 F 47 14 164/98 98
08/08/23 23:04 08/08/23 23:04 08/08/23 23:04 08/08/23 23:04 08/09/23 00:10
I&O
08/08/23 08/09/23 08/10/23
06:59 06:59 06:59
Intake Total 2810 / 2810 490 / 490
Output Total 200 / 200
Balance 2610 / 2610 490 / 490
Physical Exam
Physical Exam
General: NAD
Abdomen: normal bowel sounds, soft, n mild diffuse tenderness, no masses or bruits, no ascites
[2023-08-09 07:45] VITALS: BP 131/83
--- NOTE | 2023-08-09 07:45 | PTCARENOTE ---
Pt. came to the desk at 0745 requesting to be discharged, this nurse explained the discharging process and pt. stated she would not wait for the doctor to discharge her and wanted the AMA form. This nurse brought the pt. the AMA form and the pt.
refused to sign it. Dr. Liang made aware. Pt. IV removed and pt. given her home medication from pharmacy. Pt. requested her medical reports and was given the medical records form. Pt. was not accepting of the process to get her medical records and
yelled and cursed at this nurse and the charge nurse at the nurses station. She called the charge nurse a 'bitch' several times. Security was called but did not arrive prior to pt. leaving the unit. Pt. left behind a blanket which was placed in a
pt. belonging bag and in a container in our clean utility room.
--- NOTE | 2023-08-09 08:45 | CM ---
CM reviewed chart, patient left AMA.
Plan; patient left AMA.
--- NOTE | 2023-08-09 12:38 | W.DCSUMMARY ---
Discharge Summary
Discharge Data
Date of Admission: 08/05/23
Date of Discharge: 08/09/23
-
Pending Results: No
Hospital Course
Primary diagnoses:
Abdominal pain
Secondary diagnoses:
Hyponatremia
Marijuana use
Consultants:
Gastroenterology
Psychiatry
General surgery
Imaging:
Abd U/S:
1. Hepatomegaly and increased echogenicity in the liver, compatible with underlying hepatocellular disease, which most commonly relates to fatty infiltration of the liver.
2. Gallbladder wall thickening likely related to systemic congestion. No sonographic evidence for cholelithiasis or acute cholecystitis.
HIDA scan:
1. Abnormal study. Small amount of activity is present within the gallbladder, likely due to administration of tracer one day prior to imaging. No additional activity enters the gallbladder on 60 minute delayed phase images.
2. Small amount of activity is present within the gallbladder on delayed phase images, however it is unclear if this activity is from yesterday's injection or today's injection.
3. Overall, findings are suggestive of chronic cholecystitis in the correct clinical setting.
CT A/P w/IV 08/06/23: Markedly limited evaluation of intestinal tract without oral contrast as well as a result of marked paucity of intra-abdominal fat, without findings to suggest intestinal obstruction. No free air. Small volume free fluid in the
dependent true pelvis of uncertain etiology, possibly the sequela of recently ruptured adnexal/ovarian cyst. Markedly limited evaluation of virtually completely empty, unopacified urinary bladder. Cannot exclude small hiatal hernia. Mild
hepatomegaly.
Hospital course: 27-year-old female who presented with a chief complaint of abdominal pain as outlined in the H&P done on admission. The patient had an extensive workup including the imaging above. Abdominal ultrasound was notable for findings
likely consistent with fatty infiltration of the liver. There is no evidence of cholelithiasis or acute cholecystitis. HIDA scan was abnormal but the results were affected by an incomplete HIDA scan done the day before. The study was suggestive
of chronic cholecystitis. CT scan of the abdomen pelvis was unremarkable. LFTs and lipase were normal. The patient had no leukocytosis and was afebrile. The patient left AGAINST MEDICAL ADVICE on the morning of August 09, 2023.
Discharge Plan
-
Patient Disposition: Against Medical Advice
Referrals:
UNKNOWN - PT DOES,NOT KNOW [Family Provider] -
Prescriptions:
No Action
trazodone 100 mg Tablet
100 mg PO HS
dicyclomine 20 mg Tablet
20 mg PO BIDPRN PRN (Reason: spasms)
pantoprazole [Protonix] 40 mg Tablet,Delayed Release (Dr/Ec)
40 mg PO BID
Abilify Tab
1 tab PO DAILY
Patient Comments:
08.05.23--patient has no ecw or pharmacy record of this drug
Discharge Date and Time
Discharge Date/Time: 08/09/23 08:13
Print Language: PASHTO
== END 2023-08-09 08:13 | disposition left against medical advice (07) | DRG 392 ==
LOC: 4 EAST ACU 16:46
PROVIDERS: Internal Medicine; ADMITTING PHYSICIAN Internal Medicine; ATTENDING PHYSICIAN Internal Medicine; CONSULT PHYSICIAN Specialist; CONSULT PHYSICIAN Surgery; EMERGENCY PHYSICIAN Emergency Medicine; OTHER PHYSICIAN Psychiatry & Neurology Psychiatry
PROC: 0DB68ZX Excision of Stomach, Via Natural or Artificial Opening Endoscopic, Diagnostic (ICD-10-PCS; 2023-08-07)
PROC: 0DB48ZX Excision of Esophagogastric Junction, Via Natural or Artificial Opening Endoscopic, Diagnostic (ICD-10-PCS; 2023-08-07)
PROC: 0DB98ZX Excision of Duodenum, Via Natural or Artificial Opening Endoscopic, Diagnostic (ICD-10-PCS; 2023-08-07)
PROC: 0DB38ZX Excision of Lower Esophagus, Via Natural or Artificial Opening Endoscopic, Diagnostic (ICD-10-PCS; 2023-08-07)
DX: R10.10 Upper abdominal pain, unspecified (principal); E87.1 Hypo-osmolality and hyponatremia; K81.1 Chronic cholecystitis; K29.50 Unspecified chronic gastritis without bleeding; K76.0 Fatty (change of) liver, not elsewhere classified; F20.9 Schizophrenia, unspecified; F32.A Depression, unspecified; K21.00 Gastro-esophageal reflux disease with esophagitis, without bleeding; Z53.29 Procedure and treatment not carried out because of patient's decision for other reasons; F41.9 Anxiety disorder, unspecified; F12.90 Cannabis use, unspecified, uncomplicated; K59.00 Constipation, unspecified; R19.5 Other fecal abnormalities; R00.1 Bradycardia, unspecified; Z79.899 Other long term (current) drug therapy
CPT/HCPCS: 88305; 74177; 76705; 78226; 80048; 80053; 81003; 83690; 84703; 85025; 85027; 88342; 93005; 96361; 96365; 96375; 99284; A9537; Q9967

== ENCOUNTER 2023-11-19 01:14 | Emergency (ER) | payer SELFPAY ==
[2023-11-19 01:20] VITALS: BP 108/59
[2023-11-19] MEDS: TORADOL 15 MG IV (01:53)
[2023-11-19] MEDS: NSS 1000 IV (01:54)
[2023-11-19] MEDS: ZOFRAN 4 MG IV (01:54)
[2023-11-19 02:03] LABS: % Basophils 0.3 % (0-2); % Eosinophils 1.4 % (0-6); % Immature Granulocytes 0.3 % (0-0.5); % Lymphocytes 17.1 % (20.5-51.1); % Monocytes 6.5 % (1.7-9.3); % Neutrophils 74.4 % (42.2-75.2); Absolute Eosinophils 0.2 10^3/uL (0-0.7); Absolute Lymphocytes 1.9 10^3/uL (1.2-3.4); Absolute Monocytes 0.7 10^3/uL (0.1-0.6); Absolute Neutrophils 8.1 10^3/uL (1.4-6.5); Hematocrit 33.9 % (37.0-47.0); Hemoglobin 11.9 g/dL (12.0-16.0); Mean Corp Hgb Conc. 35.1 g/dL (33.0-37.0); Mean Corpuscular Hgb 30.7 pg (27.0-31.0); Mean Corpuscular Volume 87.4 fL (81.0-99.0); Mean Platelet Volume 10.9 fL (7.4-10.4); Nucleated Red Blood Cells % 0 %; Platelet Count 224 10^3/uL (130-400); Red Blood Cell Count 3.88 10^6/uL (4.20-5.40); Red Cell Dist. Width 13.7 % (11.5-14.5); White Blood Cell Count 10.9 10^3/uL (4.8-10.8)
[2023-11-19 02:05] LABS: Urine Albumin 2+ (Neg - Trace); Urine Bilirubin 1+ (Negative); Urine Character Very Cloudy (Clear); Urine Color Brown; Urine Glucose Negative (Negative); Urine Ketone Trace (Negative); Urine Leukocyte 2+ (Negative); Urine Nitrite Negative (Negative); Urine Occult Blood 4+ (Negative); Urine Specific Gravity 1.025 (<1.030); Urine Urobilinogen Negative (Neg - 1+)
[2023-11-19 02:11] LABS: HCG, Serum Qualitative Screen Negative
[2023-11-19 02:15] LABS: ALT (SGPT) 14 U/L (0-35); AST (SGOT) 21 U/L (14-36); Albumin 4.3 g/dl (3.5-5.0); Alkaline Phosphatase 47 U/L (38-126); Blood Urea Nitrogen 18 mg/dl (7-17); Calcium 9.6 mg/dl (8.4-10.2); Carbon Dioxide 20 mmol/L (22-30); Chloride 110 mmol/L (98-107); Glucose 107 mg/dl (70-99); Lipase 81 U/L (23-300); Potassium 4.2 mmol/L (3.5-5.1); Sodium 141 mmol/L (135-145); Total Bilirubin 0.5 mg/dl (0.2-1.3); Total Protein 6.8 g/dl (6.3-8.2); eGFR > 60.00
--- NOTE | 2023-11-19 02:16 | ED.GENMED ---
History of Present Illness
General
Chief Complaint: Abdominal Pain
Source: patient
Time Seen by Provider: 11/19/23 01:35
History of Present Illness
History of Present Illness:
28-year-old female presents complaining the onset of significant lower back pain lower abdominal pain and rectal pain. She describes it as a burning in nature. She states that she cannot find a comfortable position. She is currently on her
menstrual cycle. No fevers. She was dry heaving and had multiple episodes of formed stool. She states she has had similar discomfort in the past consisting of multiple hospitals and she has not received a formal diagnosis. She is takes Abilify
and trazodone regularly but has not been taking this recently because it makes her too sleepy.
Past History
Past History
ED Past Medical History: Psychiatric
ED Past Surgical History: Other
Social History
Tobacco: Smoker
Alcohol: Occasional
Drug: Marijuana
Personal: Other
Living: with family
Employment: Other
Family History
Family History: Other
Phy Exam
Physical Exam
Physical Exam:
General: Uncomfortable appearing female no acute respiratory distress
Psychiatric exam: Bizarre affect but cooperative
HEENT: Normocephalic atraumatic neck is supple
Heart: Regular rate and rhythm no murmurs
Lungs: Clear no wheeze
Abdomen is soft but tender to the lower abdomen bilaterally no obvious reproducible costovertebral angle tenderness
Extremities: No cyanosis
Course
Orders/Labs/Results
Orders:
Orders
11/19/23 01:35
Test Result ONCE
11/19/23 01:43
0.9% Sodium Chloride 1000 ml [Nss] 1,000 ml IV BOLUS
Ketorolac [Toradol] 15 mg IV NOW STA
Ondansetron Injectable [Zofran] 4 mg IV NOW STA
11/19/23 01:44
CT Abd/pelvis W Iv Cont Urgent
Comment:
Reason For Exam: abdominal pain
11/19/23 01:53
CBC/With Diff [Complete Blood Count/With Diff] Urgent
CMP [Comprehensive Metabolic Panel] Urgent
HCG, Serum Qualitative Screen Urgent
Lipase Urgent
Urinalysis Reflex To Culture Urgent
Date Specimen was Collected: 11/19/23
Time Specimen was Collected: 01:43
Urine Microscopic Reflex Cult Urgent
Urine Culture Urgent
MILLER Source: U
Specimen Description:
Date Specimen was Collected: 11/19/23
Time Specimen was Collected: 01:43
11/19/23 03:02
HYDROmorphone [Dilaudid] 0.5 mg IV NOW STA
Abnormal Lab Results
11/19/23
01:53
WBC 10.9 H 10^3/uL
(4.8-10.8)
RBC 3.88 L 10^6/uL
(4.20-5.40)
Hgb 11.9 L g/dL
(12.0-16.0)
Hct 33.9 L %
(37.0-47.0)
MPV 10.9 H fL
(7.4-10.4)
Absolute Neuts (auto) 8.1 H 10^3/uL
(1.4-6.5)
Absolute Monos (auto) 0.7 H 10^3/uL
(0.1-0.6)
Lymphocytes % 17.1 L %
(20.5-51.1)
Chloride 110 H mmol/L
(98-107)
Carbon Dioxide 20 L mmol/L
(22-30)
BUN 18 H mg/dl
(7-17)
Glucose 107 H mg/dl
(70-99)
Urine Ketones Trace A
(Negative)
Ur Occult Blood Reflex 4+ A
(Negative)
Urine Bilirubin 1+ A
(Negative)
Leukocyte Esterase Rfl 2+ A
(Negative)
Urine RBC >100 A /HPF
(0-2)
Urine Albumin (Reflex) 2+ A
(Neg - Trace)
11/19/23 01:53
11/19/23 01:53
Vital Signs
Initial and Last Documented VS:
Initial Vital Signs
Temp Pulse Resp BP Pulse Ox
97.6 F 85 18 108/59 99
11/19/23 01:20 11/19/23 01:20 11/19/23 01:20 11/19/23 01:20 11/19/23 01:20
Last Documented Vital Signs
Temp Pulse Resp BP Pulse Ox
97.6 F 85 18 108/59 99
11/19/23 01:20 11/19/23 01:20 11/19/23 02:00 11/19/23 01:20 11/19/23 01:20
MDM/Problems Addressed
Differential Diagnosis Includes:
Lower abdominal and back pain. Consider constipation versus colitis versus renal colic versus UTI. Will check labs and urine. CT pending.
*Critical Care Note
Total Time (30-74mins, 75-104mins- exclusive of procedures): Not Applicable
Update Note
Update Note:
Patient currently on menstrual cycle. There is significant amount of blood in the urine. test is negative. Labs reviewed without significant finding. CT pending. Toradol did not improve symptoms. Rechecked patient with female nurse
in the room. On rectal exam there is no hemorrhoids abscess swelling or skin change.
CT reviewed and demonstrates bladder wall thickening to suggest possible cystitis. Will cover with antibiotics.
ED Attending Note
-
Portions of this chart may have been created with voice recognition software.� Occasional wrong word or��sound alike� substitutions may have occurred due to the inherent limitations of voice recognition software.
Discharge Plan
Departure
Patient Disposition: Home (Routine Discharge)
Date of Disposition: 11/19/23
Time of Disposition: 03:31
Patient with high blood pressure during this ER visit?: No
Discharge Problem:
Cystitis, Abdominal pain
Instructions: Urinary Tract Infection, Adult ED, Abdominal Pain
Prescriptions:
New
cefdinir 300 mg capsule
300 mg PO BID Qty: 14 0RF
No Action
trazodone 100 mg Tablet
100 mg PO HS
dicyclomine 20 mg Tablet
20 mg PO BIDPRN PRN (Reason: spasms)
pantoprazole [Protonix] 40 mg Tablet,Delayed Release (Dr/Ec)
40 mg PO BID
Abilify Tab
1 tab PO DAILY
Patient Comments:
08.05.23--patient has no ecw or pharmacy record of this drug
Referrals:
NONE,* [Family Provider] -
Activity Restrictions/Additional Instructions:
Drink plenty of fluids. Use antibiotic as directed. Continue with ibuprofen or Tylenol for pain. Return if worse otherwise follow up with PMD.
Interventions
Interventions:
*Risk Screen - Suicide Last Done: 11/19/23 01:20
*General Assessment Last Done: 11/19/23 01:20
*Neglect/Abuse Screening Last Done: 11/19/23 01:20
ED- Fall Risk Assessment Last Done: 11/19/23 01:38
*ED COVID-19 Vaccine History Last Done: 11/19/23 01:58
OG-Gikzyb-Yjlpzwijkp Assessment Last Done: 11/19/23 01:38
ED-Musculoskeletal Assessment Last Done: 11/19/23 01:38
ED-Skin Assessment Last Done: 11/19/23 01:38
Discharge Date and Time
Print Language: ROMANSH
[2023-11-19 02:17] LABS: Urine Red Blood Cell >100 /HPF (0-2)
[2023-11-19] MEDS: DILAUDID 0.5 MG IV (03:24)
[2023-11-19] MEDS: OMNICEF 300 MG PO (03:44)
[2023-11-19] MEDS: Pyridium 200 MG PO (03:45)
[2023-11-19 05:44] VITALS: BP 100/59
== END 2023-11-19 06:38 | disposition home or self-care (01) ==
LOC: EMR 01:14
PROVIDERS: Physician Assistant; EMERGENCY PHYSICIAN Emergency Medicine
DX: N30.91 Cystitis, unspecified with hematuria (principal); R10.30 Lower abdominal pain, unspecified; F17.200 Nicotine dependence, unspecified, uncomplicated
CPT/HCPCS: 99285; 96374; 96375 ×2; 74177; 80053; 81003; 81015; 83690; 84703; 85025; 87086; Q9967

== ENCOUNTER 2023-12-13 17:26 | Emergency (ER) | payer MEDICAID, SELFPAY ==
[2023-12-13 17:31] VITALS: BP 139/98
[2023-12-13 17:58] LABS: % Basophils 0.4 % (0-2); % Eosinophils 0.7 % (0-6); % Immature Granulocytes 0.3 % (0-0.5); % Lymphocytes 16.2 % (20.5-51.1); % Neutrophils 77.4 % (42.2-75.2); Absolute Basophils 0.1 10^3/uL (0-0.2); Absolute Eosinophils 0.1 10^3/uL (0-0.7); Absolute Lymphocytes 1.9 10^3/uL (1.2-3.4); Absolute Monocytes 0.6 10^3/uL (0.1-0.6); Absolute Neutrophils 9.1 10^3/uL (1.4-6.5); Hematocrit 35.8 % (37.0-47.0); Hemoglobin 12.5 g/dL (12.0-16.0); Mean Corp Hgb Conc. 34.9 g/dL (33.0-37.0); Mean Corpuscular Hgb 30.6 pg (27.0-31.0); Mean Corpuscular Volume 87.5 fL (81.0-99.0); Mean Platelet Volume 10.6 fL (7.4-10.4); Nucleated Red Blood Cells % 0 %; Platelet Count 258 10^3/uL (130-400); Red Blood Cell Count 4.09 10^6/uL (4.20-5.40); White Blood Cell Count 11.7 10^3/uL (4.8-10.8)
[2023-12-13 18:08] LABS: ALT (SGPT) 15 U/L (0-35); AST (SGOT) 20 U/L (14-36); Albumin 4.7 g/dl (3.5-5.0); Alkaline Phosphatase 51 U/L (38-126); Blood Urea Nitrogen 13 mg/dl (7-17); Calcium 9.9 mg/dl (8.4-10.2); Carbon Dioxide 20 mmol/L (22-30); Chloride 108 mmol/L (98-107); Glucose 104 mg/dl (70-99); Lipase 58 U/L (23-300); Potassium 4.1 mmol/L (3.5-5.1); Sodium 141 mmol/L (135-145); Total Bilirubin 0.7 mg/dl (0.2-1.3); Total Protein 7.4 g/dl (6.3-8.2); eGFR > 60.00
--- NOTE | 2023-12-13 18:48 | ED.GENMED ---
History of Present Illness
General
Chief Complaint: Abdominal Symptoms
Source: patient
Exam Limitations: none
Time Seen by Provider: 12/13/23 18:35
History of Present Illness
History of Present Illness:
This is a 28 year old female that comes in with c/o menstrual cramps. States that she started 2 days ago with her period and today the pain has become unbearable. States that she has rectal pressure. States that she does have a history of Ovarian
cyst. States that she has been vomiting for 2 days and can't keep anything down. States that she has not had anything for pain since electronics lead but she vomited this back up. States that she is nauseated, vomiting and a headache. Denies any fever,
chills, chest pain, SOB, diarrhea, dizziness, urinary burning.
Past History
Past History
ED Past Medical History: Psychiatric (Anxiety, Bipolar, Depression, Schizophrenia. ) and Other (Ovarian)
ED Past Surgical History: Other (Jaw surgery)
Social History
Tobacco: Non-smoker
Alcohol: None
Drug: Marijuana
Personal:
Living: with family
Employment: Other
Family History
Family History: Other
Review of Systems
Review of Systems
All Other Systems: ROS reviewed and negative except as documented in HPI and ROS
Constitutional: Reports no symptoms; Denies fever or chills
EENT: Reports no symptoms
Respiratory: Reports no symptoms; Denies cough or trouble breathing
Cardiac: Reports no symptoms; Denies chest pain
ABD/GI: Reports abdominal pain, nausea and vomiting; Denies diarrhea
: Reports no symptoms; Denies dysuria, frequency or urgency
Musculoskeletal: Reports no symptoms
Skin: Reports no symptoms
Neurological: Reports headache; Denies dizzy
Psychiatric: Reports no symptoms
Phy Exam
General Physical Exam
General Presentation: moderate distress
General age: appears stated age
General Skin: warm and dry
General Habitus: normal
General Mental: anxious
General Hydration: dry mucous membranes
ENT Exam
ENT Exam: TM's normal, pharynx normal and neck supple
Eye Exam
Eye Exam: EOMI
Cardiovascular Exam
Cardiovascular Exam: regular rate/rhythm, no edema, no murmur and normal peripheral pulses
Pulmonary Exam
Pulmonary Exam: lungs clear, no respiratory distress, no rales, chest non tender, no crackles, no rhonchi, no wheezing and no cough
Gastrointestinal Exam
Gastrointestinal Exam: normal bowel sounds, soft, no organomegaly, no pulsatile mass, non distended and tender (Generalized tenderness with palpation)
Musculoskeletal Exam
Musculoskeletal Exam: full ROM and no edema
Skin Exam
Skin Exam: normal color, warm/dry, no rash and no petechia
Psychiatric Exam
Psychiatric Exam: anxious
Course
Orders/Labs/Results
Orders:
Orders
12/13/23 17:45
CMP [Comprehensive Metabolic Panel] Urgent
Complete Blood Count/With Diff Urgent
HCG, Serum Qualitative Screen Urgent
Comment: ADD ON
Lipase Urgent
12/13/23 18:46
0.9% Sodium Chloride 1000 ml [Nss] 1,000 ml IV BOLUS
Acetaminophen 1000MG/100Ml [Ofirmev] 1,000 mg in 100 ml IV ONCE
Acetaminophen IV Indication:: ED Narcotic Naive Pt-ONCE
Ketorolac [Toradol] 30 mg IV NOW STA
US Pelvis Only (non-obstetric) Urgent
Comment:
Reason For Exam: abd pain, Rectal pressure
12/13/23 18:47
Add On- LAB Urgent
Tests Added?: HCG
Pantoprazole [Protonix IV] 40 mg IV NOW STA
12/13/23 18:49
Ondansetron Injectable [Zofran] 4 mg IV NOW STA
12/13/23 19:03
Risperidone [Risperdal] 2 mg PO NOW STA
12/13/23 19:14
Diphenhydramine [Benadryl] 50 mg .ROUTE .STK-MED ONE
Diphenhydramine [Benadryl] 50 mg IV NOW STA
12/13/23 20:00
HYDROmorphone [Dilaudid] 1 mg .ROUTE .STK-MED ONE
HYDROmorphone [Dilaudid] 1 mg IV NOW STA
Abnormal Lab Results
12/13/23
17:45
WBC 11.7 H 10^3/uL
(4.8-10.8)
RBC 4.09 L 10^6/uL
(4.20-5.40)
Hct 35.8 L %
(37.0-47.0)
MPV 10.6 H fL
(7.4-10.4)
Absolute Neuts (auto) 9.1 H 10^3/uL
(1.4-6.5)
Neutrophils % 77.4 H %
(42.2-75.2)
Lymphocytes % 16.2 L %
(20.5-51.1)
Chloride 108 H mmol/L
(98-107)
Carbon Dioxide 20 L mmol/L
(22-30)
Glucose 104 H mg/dl
(70-99)
12/13/23 17:45
12/13/23 17:45
WBC very slightly elevated. Carbon dioxide slightly low (patient hyperventilatinig), Glucose nonfasting. Lipase normal at 58
Vital Signs
Initial and Last Documented VS:
Initial Vital Signs
Temp Pulse Resp BP Pulse Ox
98.1 F 99 18 139/98 99
12/13/23 17:31 12/13/23 17:31 12/13/23 17:31 12/13/23 17:31 12/13/23 17:31
Last Documented Vital Signs
Temp Pulse Resp BP Pulse Ox
98.1 F 97 19 120/74 99
12/13/23 17:31 12/13/23 21:54 12/13/23 21:54 12/13/23 21:54 12/13/23 21:54
MDM/Problems Addressed
Differential Diagnosis Includes:
Ruptured ovarian cyst. Ovarian Torsion, Menstrual cramps,
MDM/Problems Addressed:
This is a 28 year old female that comes in with c/o menstrual pain. States that she started with her period 2 days ago and today the pain is severe. States that she is unable to keep any fluid down.
Will check labs, US, given IV fluid, Pain medication.
Back into see patient. Explained that her Ultrasound shows a fibroid. Patient to follow up with her [employer]AL FURNITURE PANEL COVERER. Explained that her pain is out of control with her menstrual cycle and it doesn't match up. Encouraged patient to start her Psychiatric
medication again. Patient States that she is ready to go home. Requesting a prescription for Naproxen and Zofran. Will discharge home.
Chronic conditions affecting care: Psychiatric illness
Acute Exacerbation and/or Progression of Chronic Illness: Psychiatric illness
*Radiology
Radiology exam reviewed: radiology read reviewed (US-Small uterine fibroid. Otherwise essentially unremarkable transabdominal only pelvic ultrasound )
*Pulse Oximetry
Patient hypoxic: no
*EKG
Interpreted by ED Provider?: NA
Rate: EKG- N/A
*Cable Splicer Assistant Interpretation
Rate: Cable Splicer Assistant- N/A
*Critical Care Note
Total Time (30-74mins, 75-104mins- exclusive of procedures): Not Applicable
ED Attending Note
-
Portions of this chart may have been created with voice recognition software.� Occasional wrong word or��sound alike� substitutions may have occurred due to the inherent limitations of voice recognition software.
Discharge Plan
Departure
Patient Disposition: Home (Routine Discharge)
Date of Disposition: 12/13/23
Time of Disposition: 21:30
Patient with high blood pressure during this ER visit?: Yes
Condition: Good
Covid-19: Not Applicable
Discharge Problem:
Fibroid, uterine, Dysmenorrhea
Instructions: Uterine Fibroids (DC), Menstrual Cramps (DC), BLOOD PRESSURE
Prescriptions:
New
ondansetron 4 mg tablet,disintegrating
4 mg PO Q8H PRN (Reason: nausea and vomiting) Qty: 7 0RF
naproxen 500 mg tablet
500 mg PO BID PRN (Reason: Pain) Qty: 10 0RF
No Action
trazodone 100 mg Tablet
100 mg PO HS
pantoprazole [Protonix] 40 mg Tablet,Delayed Release (Dr/Ec)
40 mg PO DAILY
risperidone 2 mg Tablet
2 mg PO BID
Referrals:
NONE,* [Family Provider] -
Activity Restrictions/Additional Instructions:
As discussed, your Ultrasound shows that you have a uterine fibroid. Otherwise ultrasound is normal. Please follow up with the METAL FURNITURE PANEL COVERER for further evaluation. Two prescriptions have been sent to your pharmacy. The first is for Zofran to help with
nausea/vomiting. The second is for Naproxen to help with pain. IF YOU HAVE ANY OTHER CONCERNS PLEASE RETURN TO THE EMERGENCY ROOM
Interventions
Interventions:
*Risk Screen - Suicide Last Done: 12/13/23 19:00
*General Assessment Last Done: 12/13/23 17:31
*Neglect/Abuse Screening Last Done: 12/13/23 19:00
ED- Fall Risk Assessment Last Done: 12/13/23 20:08
*Nursing Disposition Last Done: 12/13/23 21:55
YS-[id number] Assessment Last Done: 12/13/23 19:04
Discharge Date and Time
Discharge Date/Time: 12/13/23 21:57
Print Language: ANGOLAN
[2023-12-13] MEDS: NSS 1000 IV (18:53)
[2023-12-13] MEDS: PROTONIX IV 40 MG IV (18:53)
[2023-12-13] MEDS: ZOFRAN 4 MG IV (18:53)
[2023-12-13] MEDS: OFIRMEV 100 IV (18:54)
[2023-12-13] MEDS: TORADOL 30 MG IV (18:54)
[2023-12-13] MEDS: RISPERDAL 2 MG PO (19:10)
[2023-12-13] MEDS: BENADRYL 50 MG IV (19:15)
[2023-12-13 19:24] LABS: HCG, Serum Qualitative Screen Negative
[2023-12-13] MEDS: DILAUDID 1 MG IV (20:00)
[2023-12-13 21:54] VITALS: BP 120/74
== END 2023-12-13 21:57 | disposition home or self-care (01) ==
LOC: EMR 17:26
PROVIDERS: Emergency Medicine; EMERGENCY PHYSICIAN Emergency Medicine
DX: D25.9 Leiomyoma of uterus, unspecified (principal); N94.6 Dysmenorrhea, unspecified; R10.9 Unspecified abdominal pain; R11.2 Nausea with vomiting, unspecified; R51.9 Headache, unspecified; R03.0 Elevated blood-pressure reading, without diagnosis of hypertension; F41.9 Anxiety disorder, unspecified; F31.9 Bipolar disorder, unspecified; F20.9 Schizophrenia, unspecified; F32.A Depression, unspecified; N83.209 Unspecified ovarian cyst, unspecified side
CPT/HCPCS: 99284; 96374; 96375 ×5; 96361; 76856; 80053; 83690; 84703; 85025

== ENCOUNTER 2024-01-09 10:47 | Emergency (ER) | payer OTHER, SELFPAY ==
--- NOTE | 2024-01-09 10:49 | ED.GENMED ---
History of Present Illness
<Ying Hinton PA-C - Last Filed: 01/09/24 18:06>
General
Chief Complaint: Fainting/Passed Out
Source: patient
Exam Limitations: none
Time Seen by Provider: 01/09/24 10:49
Nursing documentation reviewed up to this point in time: agreed with
History of Present Illness
History of Present Illness:
28-year-old female with past medical history of uterine fibroids, bipolar disorder, anxiety presents emergency department today with concerns of a syncopal episode. Patient reports that she is on day 3 of her current menstrual cycle and reports
that she gets very painful periods. She states that they are always associated with nausea and vomiting as well. Patient states that she had multiple frequent episodes of vomiting and states that she eventually felt faint and lost consciousness.
This episode was preceded by dizziness, lightheadedness, and hot sweats. Patient also concerned because the last episode of vomitus had a few specks of blood. Patient denies epigastric abdominal pain, daily NSAID use, melanic stools, fevers or
chills. Patient denies any history of intra-abdominal surgery. Patient does not follow with DISTRIBUTION SUPERINTENDENT. Patient denies chest pain, shortness of breath. Patient no longer takes risperidone or trazodone and uses marijuana as needed to help with her
symptoms.
Past History
<Ying Hinton PA-C - Last Filed: 01/09/24 18:06>
Past History
ED Past Medical History: Psychiatric (Anxiety, Bipolar, Depression, Schizophrenia. ) and Other (Ovarian)
ED Past Surgical History: Other (Jaw surgery)
Social History
Tobacco: Non-smoker
Alcohol: None
Drug: Marijuana
Personal:
Living: with family
Employment: Other
Family History
Family History: Other
Review of Systems
<Ying Hinton PA-C - Last Filed: 01/09/24 18:06>
Review of Systems
All Other Systems: ROS reviewed and negative except as documented in HPI and ROS
Phy Exam
<Ying Hinton PA-C - Last Filed: 01/09/24 18:06>
Physical Exam
Physical Exam:
General: Patient is anxious and restless but appears non-toxic in no acute distress
Skin: Warm and dry, no rashes or lesions
Head: Normocephalic, atraumatic
Eyes: Sclera non-icteric. EOMs intact.
Cardiac: Regular rate and rhythm, no murmur
Pulm: Normal respiratory effort, no wheezes, rales, rhonchi
Abdomen: No abdominal tenderness to palpation
Neuro: CN II-XII intact, no focal neurologic deficits.
Psychiatric: Anxious affect, akathisia. Patient denies suicidal and homicidal ideation.
Course
<Ying Hinton PA-C - Last Filed: 01/09/24 18:06>
Orders/Labs/Results
Orders:
Orders
01/09/24 11:05
Ketorolac [Toradol] 15 mg IV NOW STA
Ondansetron Injectable [Zofran] 4 mg IV NOW STA
01/09/24 11:06
Electrocardiogram (*1) Urgent
Reason for Study: Syncope
EKG- Treatment ONCE
Ketorolac [Toradol] 15 mg .ROUTE .STK-MED ONE
Ondansetron Injectable [Zofran] 4 mg .ROUTE .STK-MED ONE
01/09/24 11:08
Test Result ONCE
01/09/24 11:26
Comprehensive Metabolic Panel Urgent
HCG, Serum Qualitative Screen Urgent
01/09/24 11:37
Diphenhydramine [Benadryl] 50 mg .ROUTE .STK-MED ONE
Trimethobenzamide [Tigan] 200 mg .ROUTE .STK-MED ONE
01/09/24 11:40
Trimethobenzamide [Tigan] 200 mg IM NOW STA
01/09/24 11:41
Diphenhydramine [Benadryl] 12.5 mg IV NOW STA
01/09/24 11:50
0.9% Sodium Chloride 500 ml [Nss] 500 ml IV BOLUS
01/09/24 12:20
Acetaminophen [Tylenol] 1,000 mg PO NOW STA
Ketorolac [Toradol] 15 mg IV NOW STA
01/09/24 12:37
HYDROmorphone [Dilaudid] 0.5 mg IV NOW STA
01/09/24 13:05
Complete Blood Count/With Diff Urgent
01/09/24 13:35
Add On- LAB Urgent
Tests Added?: hcg qual
01/09/24 14:01
Pantoprazole [Protonix IV] 40 mg IV NOW STA
Abnormal Lab Results
01/09/24 01/09/24
13:05
WBC 13.5 H 10^3/uL
(4.8-10.8)
MCH 31.9 H pg
(27.0-31.0)
MPV 11.6 H fL
(7.4-10.4)
Absolute Neuts (auto) 11.3 H 10^3/uL
(1.4-6.5)
Neutrophils % 84.3 H %
(42.2-75.2)
Lymphocytes % 10.6 L %
(20.5-51.1)
Chloride 108 H mmol/L
(98-107)
Glucose 107 H mg/dl
(70-99)
01/09/24 13:05
01/09/24 11:26
Vital Signs
Initial and Last Documented VS:
Initial Vital Signs
Temp Pulse Resp BP Pulse Ox
98.1 F 69 22 105/61 100
01/09/24 11:15 01/09/24 11:15 01/09/24 11:15 01/09/24 11:15 01/09/24 11:15
Last Documented Vital Signs
Temp Pulse Resp BP Pulse Ox
98.1 F 69 22 105/61 100
01/09/24 11:22 01/09/24 11:22 01/09/24 11:22 01/09/24 11:22 01/09/24 11:22
<Vince Greenwood MD - Last Filed: 01/09/24 11:17>
Orders/Labs/Results
Orders:
Orders
01/09/24 11:05
Ketorolac [Toradol] 15 mg IV NOW STA
Ondansetron Injectable [Zofran] 4 mg IV NOW STA
01/09/24 11:06
Electrocardiogram (*1) Urgent
Reason for Study: Syncope
EKG- Treatment ONCE
Ketorolac [Toradol] 15 mg .ROUTE .STK-MED ONE
Ondansetron Injectable [Zofran] 4 mg .ROUTE .STK-MED ONE
01/09/24 11:08
Test Result ONCE
01/09/24 11:26
Comprehensive Metabolic Panel Urgent
HCG, Serum Qualitative Screen Urgent
01/09/24 11:37
Diphenhydramine [Benadryl] 50 mg .ROUTE .STK-MED ONE
Trimethobenzamide [Tigan] 200 mg .ROUTE .STK-MED ONE
01/09/24 11:40
Trimethobenzamide [Tigan] 200 mg IM NOW STA
01/09/24 11:41
Diphenhydramine [Benadryl] 12.5 mg IV NOW STA
01/09/24 11:50
0.9% Sodium Chloride 500 ml [Nss] 500 ml IV BOLUS
01/09/24 12:20
Acetaminophen [Tylenol] 1,000 mg PO NOW STA
Ketorolac [Toradol] 15 mg IV NOW STA
01/09/24 12:37
HYDROmorphone [Dilaudid] 0.5 mg IV NOW STA
01/09/24 13:05
Complete Blood Count/With Diff Urgent
01/09/24 13:35
Add On- LAB Urgent
Tests Added?: hcg qual
01/09/24 14:01
Pantoprazole [Protonix IV] 40 mg IV NOW STA
Abnormal Lab Results
01/09/24 01/09/24
13:05
WBC 13.5 H 10^3/uL
(4.8-10.8)
MCH 31.9 H pg
(27.0-31.0)
MPV 11.6 H fL
(7.4-10.4)
Absolute Neuts (auto) 11.3 H 10^3/uL
(1.4-6.5)
Neutrophils % 84.3 H %
(42.2-75.2)
Lymphocytes % 10.6 L %
(20.5-51.1)
Chloride 108 H mmol/L
(98-107)
Glucose 107 H mg/dl
(70-99)
01/09/24 13:05
01/09/24 11:26
Vital Signs
Initial and Last Documented VS:
Initial Vital Signs
Temp Pulse Resp BP Pulse Ox
98.1 F 69 22 105/61 100
01/09/24 11:15 01/09/24 11:15 01/09/24 11:15 01/09/24 11:15 01/09/24 11:15
Last Documented Vital Signs
Temp Pulse Resp BP Pulse Ox
98.1 F 69 22 105/61 100
01/09/24 11:22 01/09/24 11:22 01/09/24 11:22 01/09/24 11:22 01/09/24 11:22
<Ying Hinton PA-C - Last Filed: 01/09/24 18:06>
MDM/Problems Addressed
Differential Diagnosis Includes:
Differentials include vasovagal syncope, dysmenorrhea, cannabinoid hyperemesis syndrome, ectopic
MDM/Problems Addressed:
28-year-old female has medical history of bipolar disorder, dysmenorrhea, uterine fibroids presents emergency department today with concerns of syncopal episode. Patient states that she has a lot of pelvic pain currently associated with her period
as well as nausea and vomiting but normally she does not get syncopal episodes with this. She denies chest pain, shortness of breath. On exam, she is well appearing, she has no abdominal tenderness, her heart is regular rate and rhythm with no
murmurs. Her cbc and cmp are unremarkable. Her EKG does not show evidence of arrythmia. Suspect vasovagal syncope in light of patient's persistent vomiting episodes.
Considering patient's episodes of blood in the vomit, patient was given a dose of protonix, suspect sintia slater tear--however patient is hemodynamically stable hgb wnl denies melena. Regarding patient's painful periods, patient does have a
history of fibroids, patient states that she does have a DISTRIBUTION SUPERINTENDENT but she has not seen them in some time and is requesting a referral for anyone. Did provide patient with referral, encouraged follow-up. Patient's pain did take multiple doses of
various medications to manage as well as multiple doses of antiemetics. Suspect component of cannabinoid hyperemesis. Patient has been seen in our emergency department multiple times for this in the past. Return precautions discussed. Patient
stable for discharge.
Chronic conditions affecting care:
Marijuana use, uterine fibroids, anxiety, bipolar disorder, depression
Acute Exacerbation and/or Progression of Chronic Illness:
n/a
<Ying Hinton PA-C - Last Filed: 01/09/24 18:06>
*Pulse Oximetry
Patient hypoxic: no
*Critical Care Note
Total Time (30-74mins, 75-104mins- exclusive of procedures): Not Applicable
Data Reviewed
Review of Other/Old Records Reveals: Records (Reviewed ER physician documentation from 11/19/2023 and 12/13/2023) and Discharge Summary (reviewed discharge summary from 08/09/23)
Source: patient and records
<Ying Hinton PA-C - Last Filed: 01/09/24 18:06>
Patient Management
Escalation/DeEscalation of care consider admission/obs:
Patient stable for dischargr
ED Attending Note
<Ying Hinton PA-C - Last Filed: 01/09/24 18:06>
-
Portions of this chart may have been created with voice recognition software.� Occasional wrong word or��sound alike� substitutions may have occurred due to the inherent limitations of voice recognition software.
<Vince Greenwood MD - Last Filed: 01/09/24 11:17>
ED Attending Note
Patient seen and examined by attending physician: Yes
I performed the substantive portion of visit, reviewed & personally made and approve the management plan that is documented in note by myself or SERENA.: Yes
ED Attending Note:
I have seen and evaluated the patient with a [id number] encounter. I have spoken to the [PA] and involved in the medical history, the physical exam, medical decision making.
Evaluation and management service: agree unless noted differently below.
Results interpretation: agree unless noted differently below.
Patient is a 28-year-old woman with history of bipolar, schizophrenia presenting to the emergency. Patient states that she is currently on her menses. She has had severe pain with associated nausea and vomiting with it. However today after the
multiple episodes she did have an episode of syncope. She does state that she felt lightheaded dizzy prior to the episode. She also has been having hot and cold flashes. The initial emesis was nonbloody however the last 1 prior to her passing out
did have some specks of blood. No melena or hematochezia. This is normal for her menses. She denies any chest pain palpitations. No diarrhea. She does state that she is not taking any of her psychiatric medications as they have not helped. She
has been smoking marijuana. She does live at home with her . She denies any SI or HI. She does not see psychiatrist anymore.
GENERAL: Restless, constantly moving around in stretcher
HEENT: normocephalic, extraocular movements intact, moist oral mucosa
NECK: normal inspection
RESPIRATORY: no respiratory distress, clear to auscultation bilaterally
CARDIOVASCULAR: regular rate and rhythm
ABDOMEN/: soft, non-distended, non-tender to palpation, no rebound or guarding
EXTREMITIES: non-tender, no edema/swelling
NEUROLOGIC: awake and alert, moves all extremities
SKIN: warm
Patient is a 28-year-old woman with history of psychiatric disease presenting to the emergency department with nausea vomiting in the setting of her menses with an episode of syncope. Vitals here are unremarkable and exam does show woman who is
constantly moving but is otherwise reassuring. Likely syncopal event either vasovagal or from dehydration given the nausea vomiting. History and exam not consistent with cardiac syncope. will rule out . Will check basic blood work. Will
give fluids Zofran and Toradol. I did offer patient crisis evaluation so she could talk to our team to find a new psychiatrist however patient declined at this time. Patient is not a harm to herself or others at this time and does not meet any
involuntary criteria. Will symptomatically control patient. Anticipate discharge.
Discharge Plan
Departure
Patient Disposition: Home (Routine Discharge)
Date of Disposition: 01/09/24
Time of Disposition: 14:38
Patient with high blood pressure during this ER visit?: No
Condition: Good
Discharge Problem:
Episode of syncope, Dysmenorrhea
Instructions: Vasovagal Response, Menstrual Cramps (DC)
Prescriptions:
New
pantoprazole [Protonix] 20 mg tablet,delayed release (DR/EC)
20 mg PO DAILY 7 Days Qty: 7 0RF
No Action
trazodone 100 mg Tablet
100 mg PO HS
pantoprazole [Protonix] 40 mg Tablet,Delayed Release (Dr/Ec)
40 mg PO DAILY
risperidone 2 mg Tablet
2 mg PO BID
ondansetron 4 mg tablet,disintegrating
4 mg PO Q8H PRN (Reason: nausea and vomiting) Qty: 7 0RF
naproxen 500 mg tablet
500 mg PO BID PRN (Reason: Pain) Qty: 10 0RF
Referrals:
UNKNOWN - PT NOT,INTERVIEWE [Family Provider] -
Activity Restrictions/Additional Instructions:
Protonix has been sent to your pharmacy. Please take 20 mg of Protonix once daily.
Please return to the emergency department should you experience fevers or chills, intractable nausea or vomiting, chest pain, shortness of breath, or any other signs or symptoms worrisome to you.
Interventions
Interventions:
*Risk Screen - Suicide Last Done: 01/09/24 11:23
*General Assessment Last Done: 01/09/24 11:21
*Neglect/Abuse Screening Last Done: 01/09/24 11:23
ED- Fall Risk Assessment Last Done: 01/09/24 11:23
*ED COVID-19 Vaccine History Last Done: 01/09/24 11:21
*Nursing Disposition Last Done: 01/09/24 14:52
ED- Cardiac Assessment Last Done: 01/09/24 11:23
ED- Neurological Assessment Last Done: 01/09/24 11:23
Discharge Date and Time
Discharge Date/Time: 01/09/24 14:53
Print Language: CROATIAN
--- NOTE | 2024-01-09 10:58 | EDRN ---
Annie HAMILTON in room w/ pt.
[2024-01-09 11:00] VITALS: BMI 25.6
[2024-01-09 11:15] VITALS: BP 105/61
[2024-01-09] MEDS: TORADOL 15 MG IV ×2 (11:15→12:29)
[2024-01-09] MEDS: NSS 500 IV (11:15)
[2024-01-09] MEDS: ZOFRAN 4 MG IV (11:15)
[2024-01-09 11:22] VITALS: BP 105/61
--- NOTE | 2024-01-09 11:30 | EDRN ---
Pt continues to cry out and vomit intermittently and vomits very loudly. Pt admits to using marijuana and stated when asked last used 2 days ago.
[2024-01-09] MEDS: TIGAN 200 MG IM (11:41)
[2024-01-09] MEDS: BENADRYL 12.5 MG IV (11:42)
--- NOTE | 2024-01-09 12:00 | EDRN ---
Pt continues to moan loudly in room in pain and vomiting/retching loudly. Pt asking for pain medication. This RN informed pt that she will speak to PA when PA is available as PA is w/ another pt.
[2024-01-09 12:01] LABS: ALT (SGPT) 16 U/L (0-35); AST (SGOT) 25 U/L (14-36); Albumin 4.7 g/dl (3.5-5.0); Alkaline Phosphatase 61 U/L (38-126); Blood Urea Nitrogen 11 mg/dl (7-17); Calcium 9.7 mg/dl (8.4-10.2); Carbon Dioxide 22 mmol/L (22-30); Chloride 108 mmol/L (98-107); Estimated Creatinine Clearance 90 ml/min; Glucose 107 mg/dl (70-99); Potassium 4.1 mmol/L (3.5-5.1); Sodium 142 mmol/L (135-145); Total Bilirubin 0.6 mg/dl (0.2-1.3); Total Protein 7.4 g/dl (6.3-8.2); eGFR > 60.00
--- NOTE | 2024-01-09 12:25 | EDRN ---
At this time Pt was ambulating in hallway, not vomiting and not moaning in her bare feet as this RN was approaching her room #32. Pt was almost to physician area. Pt informed this RN has her medication and will be right in to administer.
--- NOTE | 2024-01-09 12:30 | EDRN ---
Pt asked what meds she is getting at this time. Pt informed 15 mg of toradol and tylenol po. Pt stated 'I cannot take the tylenol. I am still having nausea and vomiting so tylenol not administered.' Pt was administered toradol though pt stated, 'why
are you giving me the same med that did not work the last time.' Pt requested stronger medication, narcotics for her pain. On flushing IV access w/ saline pt said 'ouch, you flushed that too fast.' Then said 'I want a new nurse. This nurse caused me
pain by flushing my IV too quickly. 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 ' Ying HAMILTON went in just after that after informed about tylenol and toradol as well as pt requesting a narcotic pain medication.
--- NOTE | 2024-01-09 12:40 | EDRN ---
This RN called charge preparation technician and Beryl DE LA ROSA took over care of this pt at this time.
[2024-01-09] MEDS: DILAUDID 0.5 MG IV (12:48)
[2024-01-09 13:13] LABS: % Basophils 0.2 % (0-2); % Eosinophils 0.4 % (0-6); % Immature Granulocytes 0.3 % (0-0.5); % Lymphocytes 10.6 % (20.5-51.1); % Monocytes 4.2 % (1.7-9.3); % Neutrophils 84.3 % (42.2-75.2); Absolute Eosinophils 0.1 10^3/uL (0-0.7); Absolute Lymphocytes 1.4 10^3/uL (1.2-3.4); Absolute Monocytes 0.6 10^3/uL (0.1-0.6); Absolute Neutrophils 11.3 10^3/uL (1.4-6.5); Hematocrit 39.4 % (37.0-47.0); Hemoglobin 13.7 g/dL (12.0-16.0); Mean Corp Hgb Conc. 34.8 g/dL (33.0-37.0); Mean Corpuscular Hgb 31.9 pg (27.0-31.0); Mean Corpuscular Volume 91.8 fL (81.0-99.0); Mean Platelet Volume 11.6 fL (7.4-10.4); Nucleated Red Blood Cells % 0 %; Platelet Count 228 10^3/uL (130-400); Red Blood Cell Count 4.29 10^6/uL (4.20-5.40); Red Cell Dist. Width 12.7 % (11.5-14.5); White Blood Cell Count 13.5 10^3/uL (4.8-10.8)
--- NOTE | 2024-01-09 13:37 | EDRN ---
Pt ambulated down hallway and asked someone for some ice chips at this time then returned to her room.
[2024-01-09] MEDS: PROTONIX IV 40 MG IV (14:18)
[2024-01-09 14:36] LABS: HCG, Serum Qualitative Screen Negative
== END 2024-01-09 14:53 | disposition home or self-care (01) ==
LOC: EMR 10:47
PROVIDERS: Physician Assistant; EMERGENCY PHYSICIAN Student in an Organized Health Care Education/Training Program
DX: R55 Syncope and collapse (principal); N94.6 Dysmenorrhea, unspecified; F12.90 Cannabis use, unspecified, uncomplicated; R11.2 Nausea with vomiting, unspecified; F31.9 Bipolar disorder, unspecified; F41.9 Anxiety disorder, unspecified; Z87.42 Personal history of other diseases of the female genital tract
CPT/HCPCS: 96374; 96375; 96376; 96361; 96372; 99284; 80053; 84703; 85025; 93005

== ENCOUNTER 2024-03-21 17:48 | Emergency (ER) | payer OTHER, SELFPAY ==
[2024-03-21 17:50] VITALS: BP 126/85
--- NOTE | 2024-03-21 19:40 | ED.SKININJ ---
HPI-Injury
General
Chief Complaint: Skin Surface Trauma
Source: patient
Exam Limitations: none
Time Seen by Provider: 03/21/24 17:59
Nursing documentation reviewed up to this point in time: agreed with
History of Present Illness-Injury
Is this injury a work related problem?: No
Is pt an associate of [facility]?: No
Initial Injury comments:
Punched window in anger. Rupa broke and she sustained a laceration to her right dorsal middle finger. Also complains of right wrist pain. Incident occurred today. Brought self to ED for eval. Declines crisis intervention
Past History
Past History
ED Past Medical History: Psychiatric (Anxiety, Bipolar, Depression, Schizophrenia. ) and Other (Ovarian)
ED Past Surgical History: Other (Jaw surgery)
Social History
Tobacco: Non-smoker
Alcohol: None
Drug: Marijuana
Personal:
Living: with family
Employment: Other
Family History
Family History: Other
Review of Systems
Review of Systems
Allergies reviewed?: Yes
All Other Systems: ROS reviewed and negative except as documented in HPI and ROS
Constitutional: Reports no symptoms
Musculoskeletal: Reports joint pain (Pain to right 3rd finger, right wrist)
Skin: Reports other (Laceration to dorsum of right 3rd finger)
Neurological: Reports no symptoms
Psychiatric: Reports no symptoms
Skin Exam
Laceration
Right Dorsal Third Finger:
Length in cm: 1.5
Orientation: vertical
Type of Laceration: simple
Any active bleeding?: no active bleeding
Distal skin color and temperature: normal-warm & good color
Normal distal neurovascular exam: Yes
Range of motion: full
Phy Exam
General Physical Exam
General Presentation: well appearing and no apparent distress
General age: appears stated age
General Skin: warm and dry
General Habitus: normal
General Mental: alert
General Hydration: appears well hydrated
Musculoskeletal Exam
Musculoskeletal Exam: full ROM and neuro vasc intact
Skin Exam
Skin Exam: normal color and warm/dry
Psychiatric Exam
Psychiatric Exam: normal mood/affect
Course
Orders/Labs/Results
Orders:
Orders
03/21/24 18:18
Ibuprofen [Motrin] 600 mg .ROUTE .STK-MED ONE
03/21/24 18:48
Finger(s)/Thumb 2 View Rt [CR Finger(s)/thumb Min 2 Vw Rt] Urgent
Comment:
Reason For Exam: trauma
Wrist, Right 3 Views [CR Wrist - Right Min 3 Views] Urgent
Comment:
Reason For Exam: trauma
Vital Signs
Initial and Last Documented VS:
Initial Vital Signs
Temp Pulse Resp BP Pulse Ox
99.3 F 62 16 126/85 100
03/21/24 17:50 03/21/24 17:50 03/21/24 17:50 03/21/24 17:50 03/21/24 17:50
Last Documented Vital Signs
Temp Pulse Resp BP Pulse Ox
99.3 F 62 16 126/85 100
03/21/24 17:50 03/21/24 17:50 03/21/24 17:50 03/21/24 17:50 03/21/24 17:50
Procedures
Laceration Closure
Right Third Finger:
Status of Wound: clean
Description of Wound Edges: sharp
Preparation: cleaned with saline
Anesthesia: 1% Lidocaine
Wound exploration: with tx- contaminated and no tendon involvement
Type of Closure: single layer closure
Skin Closure Material: 5-0 prolene
*Radiology
Radiology exam reviewed: radiology read reviewed
*Pulse Oximetry
Patient hypoxic: no
*Critical Care Note
Total Time (30-74mins, 75-104mins- exclusive of procedures): Not Applicable
ED Attending Note
-
Portions of this chart may have been created with voice recognition software.� Occasional wrong word or��sound alike� substitutions may have occurred due to the inherent limitations of voice recognition software.
Discharge Plan
Departure
Patient Disposition: Home (Routine Discharge)
Date of Disposition: 03/21/24
Time of Disposition: 19:39
Patient with high blood pressure during this ER visit?: No
Condition: Good
Covid-19: Not Applicable
Discharge Problem:
Finger laceration
Instructions: Laceration Repair With Stitches (DC)
Prescriptions:
No Action
trazodone 100 mg Tablet
100 mg PO HS
pantoprazole [Protonix] 40 mg Tablet,Delayed Release (Dr/Ec)
40 mg PO DAILY
risperidone 2 mg Tablet
2 mg PO BID
ondansetron 4 mg tablet,disintegrating
4 mg PO Q8H PRN (Reason: nausea and vomiting) Qty: 7 0RF
naproxen 500 mg tablet
500 mg PO BID PRN (Reason: Pain) Qty: 10 0RF
pantoprazole [Protonix] 20 mg tablet,delayed release (DR/EC)
20 mg PO DAILY 7 Days Qty: 7 0RF
Referrals:
UNKNOWN - PT DOES,NOT KNOW [Family Provider] -
Activity Restrictions/Additional Instructions:
Sutures can be removed in 7-10 days by your family doctor.
Interventions
Interventions:
*Risk Screen - Suicide Last Done: 03/21/24 17:50
*General Assessment Last Done: 03/21/24 17:50
*Neglect/Abuse Screening Last Done: 03/21/24 17:50
*ED COVID-19 Vaccine History Last Done: 03/21/24 17:50
ED-Skin Assessment Last Done: 03/21/24 18:16
Discharge Date and Time
Print Language: BHUTANESE
Musculoskeletal Injury Exam
Musculoskeletal Injury Exam
Right Wrist:
Pain with Movement?: Moderate
Tender to palpation?: Moderate
Soft tissue swelling?: None
External deformity and angulation?: None
Joint effusion?: None
Contusion?: None
Hematoma-local bleeding into tissue?: None
Strain- Sprain- Tear (Connective tissue injury)?: Moderate
Crepitus with movement?: No
Joint instability?: No
Malalignment/deformity?: No
Range of motion: Full
Distal skin color and temperature: normal-warm & good color
Capillary Refill: normal
Normal distal neurovascular exam?: Yes
Peripheral Pulses: radial (right): 3+
[2024-03-21] MEDS: MOTRIN 600 MG PO (19:58)
== END 2024-03-21 19:58 | disposition home or self-care (01) ==
LOC: EMR 17:48
PROVIDERS: EMERGENCY PHYSICIAN Emergency Medicine
DX: S61.212A Laceration without foreign body of right middle finger without damage to nail, initial encounter (principal); W25.XXXA Contact with sharp glass, initial encounter; M25.531 Pain in right wrist
CPT/HCPCS: 12001; 99283; 73110; 73140

== ENCOUNTER 2024-04-05 23:56 | Emergency (ER) | payer OTHER, SELFPAY ==
[2024-04-06] MEDS: ATIVAN 1 MG IV (00:18)
[2024-04-06] MEDS: ZOFRAN 4 MG IV (00:19)
[2024-04-06] MEDS: NSS 1000 IV (00:19)
[2024-04-06 00:38] LABS: HCG, Serum Qualitative Screen Negative
[2024-04-06] MEDS: HALDOL 2 MG IV (00:39)
[2024-04-06] MEDS: TORADOL 15 MG IV (00:39)
[2024-04-06 00:40] LABS: ALT (SGPT) 19 U/L (0-35); AST (SGOT) 25 U/L (14-36); Albumin 4.4 g/dl (3.5-5.0); Alkaline Phosphatase 63 U/L (38-126); Blood Urea Nitrogen 13 mg/dl (7-17); Calcium 9.6 mg/dl (8.4-10.2); Carbon Dioxide 22 mmol/L (22-30); Chloride 108 mmol/L (98-107); Glucose 118 mg/dl (70-99); Lipase 109 U/L (23-300); Potassium 4.2 mmol/L (3.5-5.1); Sodium 138 mmol/L (135-145); Total Bilirubin 0.4 mg/dl (0.2-1.3); Total Protein 7.1 g/dl (6.3-8.2); eGFR > 60.00
[2024-04-06 00:43] VITALS: BP 124/88
[2024-04-06 00:44] LABS: Hematocrit 36.3 % (37.0-47.0); Hemoglobin 12.3 g/dL (12.0-16.0); Mean Corp Hgb Conc. 33.9 g/dL (33.0-37.0); Mean Corpuscular Hgb 31.2 pg (27.0-31.0); Mean Corpuscular Volume 92.1 fL (81.0-99.0); Mean Platelet Volume 10.2 fL (7.4-10.4); Platelet Count 279 10^3/uL (130-400); Red Blood Cell Count 3.94 10^6/uL (4.20-5.40); Red Cell Dist. Width 13.8 % (11.5-14.5); White Blood Cell Count 10.1 10^3/uL (4.8-10.8)
[2024-04-06 00:45] VITALS: BMI 28.7
--- NOTE | 2024-04-06 01:02 | ED.GENMED ---
History of Present Illness
<Augie Eldridge PA-C - Last Filed: 04/06/24 16:10>
General
Chief Complaint: Abdominal Symptoms
Time Seen by Provider: 04/06/24 00:07
History of Present Illness
History of Present Illness:
28-year-old female presents the emergency department complaining of generalized abdominal pain associated with nausea vomiting and diarrhea. States this began 1 hour after eating a seafood burrito at approximately 4 PM today. She is quite anxious
and writhing around the exam bed, unable to sit still. No prior abdominal surgeries
Past History
<Augie Eldridge PA-C - Last Filed: 04/06/24 16:10>
Past History
ED Past Medical History: Psychiatric (Anxiety, Bipolar, Depression, Schizophrenia. ) and Other (Ovarian)
ED Past Surgical History: Other (Jaw surgery)
Social History
Tobacco: Non-smoker
Alcohol: None
Drug: Marijuana
Personal:
Living: with family
Employment: Other
Family History
Family History: Other
Review of Systems
<Augie Eldridge PA-C - Last Filed: 04/06/24 16:10>
Review of Systems
Allergies reviewed?: Yes
All Other Systems: ROS reviewed and negative except as documented in HPI and ROS
Phy Exam
<Augie Eldridge PA-C - Last Filed: 04/06/24 16:10>
Physical Exam
Physical Exam:
GEN: Anxious, writhing around
HEENT: Oral mucosa moist, no scleral icterus
Cardiac: Regular rate and rhythm
Lung: No respiratory distress, no tachypnea
Abdomen: Soft, generally nontender
MSK: No gross deformity or injuries
Skin: Good color, no pallor or jaundice, no rashes
Neuro: AO x3, moves all extremities freely
Psych: Profoundly anxious, difficult to redirect
Course
<Augie Eldridge PA-C - Last Filed: 04/06/24 16:10>
Orders/Labs/Results
Orders:
Orders
04/06/24 00:08
0.9% Sodium Chloride 1000 ml [Nss] 1,000 ml IV BOLUS
Acetaminophen [Tylenol] 1,000 mg PO NOW STA
Lorazepam [Ativan] 1 mg IV NOW STA
Ondansetron Injectable [Zofran] 4 mg IV NOW STA
04/06/24 00:09
Test Result ONCE
04/06/24 00:20
Comprehensive Metabolic Panel Urgent
HCG, Serum Qualitative Screen Urgent
Lipase Urgent
04/06/24 00:21
Complete Blood Count/No Diff Urgent
04/06/24 00:29
Haloperidol Lactate [Haldol] 2 mg IV NOW STA
04/06/24 00:30
Electrocardiogram (*1) Urgent
Reason for Study: QTc Monitoring
EKG- Treatment ONCE
04/06/24 00:31
Ketorolac [Toradol] 15 mg IV NOW STA
04/06/24 02:21
Acetaminophen 1000MG/100Ml [Ofirmev] 1,000 mg in 100 ml IV ONCE
Acetaminophen IV Indication:: ED Narcotic Naive Pt-ONCE
Abnormal Lab Results
04/06/24 04/06/24
00:20 00:21
RBC 3.94 L 10^6/uL
(4.20-5.40)
Hct 36.3 L %
(37.0-47.0)
MCH 31.2 H pg
(27.0-31.0)
Chloride 108 H mmol/L
(98-107)
Glucose 118 H mg/dl
(70-99)
04/06/24 00:21
04/06/24 00:20
Vital Signs
Initial and Last Documented VS:
Initial Vital Signs
Pulse Resp Pulse Ox
75 26 97
04/05/24 23:57 04/05/24 23:57 04/05/24 23:57
Last Documented Vital Signs
Pulse Resp BP Pulse Ox
75 26 114/77 99
04/05/24 23:57 04/05/24 23:57 04/06/24 02:36 04/06/24 00:15
<Yojana Li, DO - Last Filed: 04/07/24 08:12>
Orders/Labs/Results
Orders:
Orders
04/06/24 00:08
0.9% Sodium Chloride 1000 ml [Nss] 1,000 ml IV BOLUS
Acetaminophen [Tylenol] 1,000 mg PO NOW STA
Lorazepam [Ativan] 1 mg IV NOW STA
Ondansetron Injectable [Zofran] 4 mg IV NOW STA
04/06/24 00:09
Test Result ONCE
04/06/24 00:20
Comprehensive Metabolic Panel Urgent
HCG, Serum Qualitative Screen Urgent
Lipase Urgent
04/06/24 00:21
Complete Blood Count/No Diff Urgent
04/06/24 00:29
Haloperidol Lactate [Haldol] 2 mg IV NOW STA
04/06/24 00:30
Electrocardiogram (*1) Urgent
Reason for Study: QTc Monitoring
EKG- Treatment ONCE
04/06/24 00:31
Ketorolac [Toradol] 15 mg IV NOW STA
04/06/24 02:21
Acetaminophen 1000MG/100Ml [Ofirmev] 1,000 mg in 100 ml IV ONCE
Acetaminophen IV Indication:: ED Narcotic Naive Pt-ONCE
Abnormal Lab Results
04/06/24 04/06/24
00:20 00:21
RBC 3.94 L 10^6/uL
(4.20-5.40)
Hct 36.3 L %
(37.0-47.0)
MCH 31.2 H pg
(27.0-31.0)
Chloride 108 H mmol/L
(98-107)
Glucose 118 H mg/dl
(70-99)
04/06/24 00:21
04/06/24 00:20
Vital Signs
Initial and Last Documented VS:
Initial Vital Signs
Pulse Resp Pulse Ox
75 26 97
04/05/24 23:57 04/05/24 23:57 04/05/24 23:57
Last Documented Vital Signs
Pulse Resp BP Pulse Ox
75 26 114/77 99
04/05/24 23:57 04/05/24 23:57 04/06/24 02:36 04/06/24 00:15
<Augie Eldridge PA-C - Last Filed: 04/06/24 16:10>
MDM/Problems Addressed
MDM/Problems Addressed:
Likely cannabinoid hyperemesis given marked improved w/ haloperidol however food borne gastroenteritis is possible. Unfortunately pt was consistently kinking her IV line and did not receive full fluid bolus, additionally had continued complaints of
pain prolonging her care. Signed out to Dr Li pending further observation/treatment
<Aguie Eldridge PA-C - Last Filed: 04/06/24 16:10>
*Critical Care Note
Total Time (30-74mins, 75-104mins- exclusive of procedures): Not Applicable
ED Attending Note
<Augie Eldridge PA-C - Last Filed: 04/06/24 16:10>
-
Portions of this chart may have been created with voice recognition software.� Occasional wrong word or��sound alike� substitutions may have occurred due to the inherent limitations of voice recognition software.
<Yojana Li DO - Last Filed: 04/07/24 08:12>
ED Attending Note
Patient seen and examined by attending physician: Yes
I performed a history and physical exam of patient and discussed management with resident, I reviewed resident's note and agree with documented findings and plan of care.: Yes
ED Attending Note:
Pt presents with abdominal pain, N/V/D since yesterday evening.
Has had previous episodes of primarily lower abdominal pain associated with nausea and vomiting with essentially unremarkable evaluations.
Currently feeling improved after IV fluids, antiemetics, IV Haldol.
Previous records note concern for cannabis hyperemesis syndrome. Other consideration is acute gastroenteritis either viral versus foodborne.
Labs are reassuring, within normal limits.
Abdomen is soft without appreciable tenderness.
Patient feeling improved, no further abdominal pain, no further nausea and no diarrhea since arrival to the ED.
Will discharge to home with recommendations to limit her diet to clear liquids today, slowly advance to soft/bland foods as tolerated.
A prescription for Zofran has been sent to her pharmacy.
Follow-up with PCP for recheck.
Return precautions discussed.
Discharge Plan
Departure
Patient Disposition: Home (Routine Discharge)
Patient with high blood pressure during this ER visit?: No
Discharge Problem:
Nausea and vomiting
Instructions: Nausea and Vomiting, Adult (DC)
Prescriptions:
New
ondansetron 4 mg tablet,disintegrating
4 mg PO TIDPRN PRN (Reason: nausea/vomiting) Qty: 10 0RF
No Action
trazodone 100 mg Tablet
100 mg PO HS
pantoprazole [Protonix] 40 mg Tablet,Delayed Release (Dr/Ec)
40 mg PO DAILY
risperidone 2 mg Tablet
2 mg PO BID
ondansetron 4 mg tablet,disintegrating
4 mg PO Q8H PRN (Reason: nausea and vomiting) Qty: 7 0RF
naproxen 500 mg tablet
500 mg PO BID PRN (Reason: Pain) Qty: 10 0RF
pantoprazole [Protonix] 20 mg tablet,delayed release (DR/EC)
20 mg PO DAILY 7 Days Qty: 7 0RF
Referrals:
UNKNOWN - PT DOES,NOT KNOW [Family Provider] -
Interventions
Interventions:
*Risk Screen - Suicide Last Done: 04/05/24 23:57
*General Assessment Last Done: 04/05/24 23:57
*Neglect/Abuse Screening Last Done: 04/05/24 23:57
ED- Fall Risk Assessment Last Done: 04/06/24 00:04
*ED COVID-19 Vaccine History Last Done: 04/06/24 01:01
*Nursing Disposition Last Done: 04/06/24 04:26
KQ-Kndsor-Bwpakybcso Assessment Last Done: 04/06/24 00:26
Discharge Date and Time
Discharge Date/Time: 04/06/24 04:29
Print Language: IRAQI
[2024-04-06] MEDS: OFIRMEV 100 IV (02:33)
[2024-04-06 02:36] VITALS: BP 114/77
== END 2024-04-06 04:29 | disposition home or self-care (01) ==
LOC: EMR 23:56
PROVIDERS: Physician Assistant; EMERGENCY PHYSICIAN Emergency Medicine
DX: R11.2 Nausea with vomiting, unspecified (principal)
CPT/HCPCS: 99284; 96374; 96375 ×4; 96361; 80053; 83690; 84703; 85027; 93005

== ENCOUNTER 2024-04-08 06:50 | Emergency (ER) | payer OTHER, SELFPAY ==
[2024-04-08 06:52] VITALS: BP 138/85
[2024-04-08 06:55] VITALS: BP 138/85
[2024-04-08 07:00] VITALS: BMI 28.5
[2024-04-08] MEDS: ATIVAN 1 MG IV (07:45)
[2024-04-08] MEDS: ZOFRAN 4 MG IV (07:46)
[2024-04-08] MEDS: NSS 1000 IV (07:51)
[2024-04-08 08:02] LABS: % Basophils 0.5 % (0-2); % Eosinophils 1.6 % (0-6); % Immature Granulocytes 0.4 % (0-0.5); % Lymphocytes 20.3 % (20.5-51.1); % Monocytes 7.9 % (1.7-9.3); % Neutrophils 69.3 % (42.2-75.2); Absolute Eosinophils 0.1 10^3/uL (0-0.7); Absolute Lymphocytes 1.7 10^3/uL (1.2-3.4); Absolute Monocytes 0.7 10^3/uL (0.1-0.6); Absolute Neutrophils 5.7 10^3/uL (1.4-6.5); Hematocrit 35.1 % (37.0-47.0); Hemoglobin 11.8 g/dL (12.0-16.0); Mean Corp Hgb Conc. 33.6 g/dL (33.0-37.0); Mean Corpuscular Hgb 31.3 pg (27.0-31.0); Mean Corpuscular Volume 93.1 fL (81.0-99.0); Mean Platelet Volume 10.9 fL (7.4-10.4); Nucleated Red Blood Cells % 0 %; Platelet Count 268 10^3/uL (130-400); Red Blood Cell Count 3.77 10^6/uL (4.20-5.40); Red Cell Dist. Width 13.9 % (11.5-14.5); White Blood Cell Count 8.2 10^3/uL (4.8-10.8)
[2024-04-08] MEDS: DILAUDID 1 MG IV (08:03)
[2024-04-08 08:06] VITALS: BP 82/71
[2024-04-08 08:10] VITALS: BP 130/87
[2024-04-08 08:14] LABS: HCG, Serum Qualitative Screen Negative
[2024-04-08 08:19] LABS: ALT (SGPT) 17 U/L (0-35); AST (SGOT) 22 U/L (14-36); Albumin 4.2 g/dl (3.5-5.0); Alkaline Phosphatase 61 U/L (38-126); Blood Urea Nitrogen 19 mg/dl (7-17); Calcium 9.7 mg/dl (8.4-10.2); Carbon Dioxide 22 mmol/L (22-30); Chloride 106 mmol/L (98-107); Estimated Creatinine Clearance 96 ml/min; Glucose 88 mg/dl (70-99); Lipase 83 U/L (23-300); Potassium 3.8 mmol/L (3.5-5.1); Sodium 138 mmol/L (135-145); Total Bilirubin 0.4 mg/dl (0.2-1.3); Total Protein 6.9 g/dl (6.3-8.2); eGFR > 60.00
--- NOTE | 2024-04-08 09:01 | ED.GENMED ---
History of Present Illness
General
Chief Complaint: Abdominal Pain
Source: patient
Exam Limitations: none
Time Seen by Provider: 04/08/24 07:31
Nursing documentation reviewed up to this point in time: agreed with
History of Present Illness
History of Present Illness:
28-year-old female with a history of bipolar 28-year-old female with history of bipolar disorder, schizophrenia, uterine fibroids, cannabis hyperemesis suspected, presents for generalized abdominal pain, intermittent rectal discomfort that feels
like a spasm in her rectum over the last 2 days. Patient was seen here 2 days ago for nausea and vomiting. At that time she also reported diarrhea. She was given IV Zofran, Ativan and then Haldol. Patient says 'I was just put to sleep' and when
she woke up she felt better so she went home. She says she is also upset because she has stitches in her finger that were placed 3 weeks ago and she needs to have them taken out and she reported this to them and they did not remove them. Patient
says that she does not want to be given Haldol again and just made to go to sleep because this pain is severe. She has not put anything in her rectum including enema, patient has not had anal intercourse. Patient says she has no discharge from her
rectum. She does feel constipated. Patient says she has not had a bowel movement since leaving here, she was not given Imodium. She does use cannabis, she says she last used a couple weeks ago. Patient has had multiple ED visits but not for a
lengthy period of time over the last couple months here for nausea vomiting and sometimes abdominal pain. On 1 occasion she did report rectal pain similar to how she is describing it here. She has not had a fever, chills, urinary symptoms, vaginal
bleeding. Patient does get a lot of pain with her. But is not on her menstrual cycle now.
Patient is spitting quite frequently the saliva from her mouth. She is not vomiting currently but she is moaning and uncomfortable
Past History
Past History
ED Past Medical History: Psychiatric (Anxiety, Bipolar, Depression, Schizophrenia. ) and Other (Ovarian)
ED Past Surgical History: Other (Jaw surgery)
Social History
Tobacco: Non-smoker
Alcohol: None
Drug: Marijuana
Personal:
Living: with family
Employment: Other
Family History
Family History: Other
Review of Systems
Review of Systems
Allergies reviewed?: Yes
All Other Systems: Not applicable
Phy Exam
Physical Exam
Physical Exam:
GENERAL: Alert , agitated, moaning,
EYE: pupils equal and reactive
NECK: Supple
ENT: o/p clr, mmm.
CARDIAC: Regular rate and rhythm .
LUNGS: Clear breath sounds bilaterally, no acute respiratory distress, no wheezes/rales/rhonchi
ABDOMEN: Soft, without focal tenderness, no r/g, no cvat, normal bowel sounds
Rectum normal external inspection, no obvious hemorrhoids, no fissures, no erythema, no discharge
Patient has no fecal impaction, she had some discomfort with the exam but there were no palpable internal hemorrhoids and no stool in her rectum
NEUROLOGICAL: Alert and oriented, no focal neuro deficits
SKIN: Warm and dry, skin intact.
MUSCULOSKELETAL: No edema, well perfused. neg brody's sign
PSYCH: Agitated, flustered
Course
Orders/Labs/Results
Orders:
Orders
04/08/24 07:23
Lidocaine 2% [Lidocaine Uro-Jet 2%] 1 syringe .ROUTE .STK-MED ONE
04/08/24 07:32
Urinalysis Reflex To Culture Urgent
Lorazepam [Ativan] 1 mg IV NOW STA
04/08/24 07:33
Test Result ONCE
04/08/24 07:34
CT Abd/Pel (IV only)-DH only Urgent
Comment:
Reason For Exam: rectal pain, abd pain, vomitnig
0.9% Sodium Chloride 1000 ml [Nss] 1,000 ml IV BOLUS
Ondansetron Injectable [Zofran] 4 mg IV NOW STA
04/08/24 07:54
Complete Blood Count/With Diff Urgent
Comprehensive Metabolic Panel Urgent
HCG, Serum Qualitative Screen Urgent
Lipase Urgent
04/08/24 07:59
HYDROmorphone [Dilaudid] 1 mg IV NOW STA
Abnormal Lab Results
04/08/24
07:54
RBC 3.77 L 10^6/uL
(4.20-5.40)
Hgb 11.8 L g/dL
(12.0-16.0)
Hct 35.1 L %
(37.0-47.0)
MCH 31.3 H pg
(27.0-31.0)
MPV 10.9 H fL
(7.4-10.4)
Absolute Monos (auto) 0.7 H 10^3/uL
(0.1-0.6)
Lymphocytes % 20.3 L %
(20.5-51.1)
BUN 19 H mg/dl
(7-17)
04/08/24 07:54
04/08/24 07:54
Vital Signs
Initial and Last Documented VS:
Initial Vital Signs
Temp Pulse Resp BP Pulse Ox
36.9 C 81 20 138/85 98
04/08/24 06:52 04/08/24 06:52 04/08/24 06:52 04/08/24 06:52 04/08/24 06:52
Last Documented Vital Signs
Temp Pulse Resp BP Pulse Ox
36.9 C 81 20 106/51 99
04/08/24 06:52 04/08/24 06:52 04/08/24 06:52 04/08/24 10:00 04/08/24 09:36
MDM/Problems Addressed
Differential Diagnosis Includes:
fecal impction, hemorrhoids, spasm, endometriosis, colitis, diverticulitis, hyperemesis
MDM/Problems Addressed:
28 y/o F
a few ed visits over the past few mo and 1 2 days ago for n/v
uses cannabis but not regularly
primarily complaining of nausea, gen abd pain and intermittent rectal spasm pain
no FB in rectum
no fever, drainage, bleeding
pt was spitting saliva but not vomiting
she complained that 2 days ago she was 'just put to sleep' with haldol and though she felt better when she woke up, she felt that her sypmtoms weren't fully addressed
she also has sutures in her r middle finger that need to be removed
on exam pt was hyperventilating and a bit agitated intiially
looked uncomfortable but no significant rectal or abd tenderness
pt did not have imaging of her abdomen 2 days ago
thus treated her spasm with ativan and nausea with zofran and afterward pt was insistent on pain medcation
given 1 dose of dilaudid and now pt feels much better
labs unremarkable, bicarb 19 but otherwise no electrolyte abnormalities
abd ctscan neg
d/c the UA, NO URINARY SYMPTOMS
zofran #4 tabs since she has a few left at home
continue cesatio
*Critical Care Note
Total Time (30-74mins, 75-104mins- exclusive of procedures): Not Applicable
ED Attending Note
-
Portions of this chart may have been created with voice recognition software.� Occasional wrong word or��sound alike� substitutions may have occurred due to the inherent limitations of voice recognition software.
Discharge Plan
Departure
Patient Disposition: Home (Routine Discharge)
Date of Disposition: 04/08/24
Time of Disposition: 09:41
Patient with high blood pressure during this ER visit?: No
Condition: Fair
Covid-19: Not Applicable
Discharge Problem:
Vomiting, Abdominal pain
Instructions: Nausea and Vomiting, Adult (DC), Abdominal Pain
Prescriptions:
New
ondansetron 4 mg tablet,disintegrating
4 mg PO Q8H PRN (Reason: nausea and vomiting) 2 Days Qty: 4 0RF
Metamucil 3.4 gram/5.4 gram powder
1 tbsp PO DAILY Qty: 660 0RF
polyethylene glycol 3350 [Miralax] 17 gram/dose powder
4 g PO DAILY PRN (Reason: Constipation) Qty: 119 0RF
No Action
trazodone 100 mg Tablet
100 mg PO HS
pantoprazole [Protonix] 40 mg Tablet,Delayed Release (Dr/Ec)
40 mg PO DAILY
risperidone 2 mg Tablet
2 mg PO BID
ondansetron 4 mg tablet,disintegrating
4 mg PO Q8H PRN (Reason: nausea and vomiting) Qty: 7 0RF
naproxen 500 mg tablet
500 mg PO BID PRN (Reason: Pain) Qty: 10 0RF
pantoprazole [Protonix] 20 mg tablet,delayed release (DR/EC)
20 mg PO DAILY 7 Days Qty: 7 0RF
ondansetron 4 mg tablet,disintegrating
4 mg PO TIDPRN PRN (Reason: nausea/vomiting) Qty: 10 0RF
Referrals:
UNKNOWN,NO INTERVIEW [Family Provider] -
Activity Restrictions/Additional Instructions:
We are not entirely sure the cause of your vomiting and abdominal pain.
You had no signs of any significant dehydration, your labs were unremarkable. You did have a CAT scan that did not show any obvious causes for your symptoms. On exam you had no signs of a hemorrhoid or any infection to cause the rectal discomfort.
Make sure you are taking a stool softener daily like Metamucil
For now have a bland diet start with ice chips and increase as tolerated today. If you vomit you could try dose of Zofran every 8 hours as needed.
Return for significant worsening of symptoms but otherwise please follow-up with the family doctor or GI specialist.
Interventions
Interventions:
*Risk Screen - Suicide Last Done: 04/08/24 06:52
*General Assessment Last Done: 04/08/24 06:52
*Neglect/Abuse Screening Last Done: 04/08/24 06:52
*ED COVID-19 Vaccine History Last Done: 04/08/24 07:00
RV-Lnnnum-Macnvgevcg Assessment Last Done: 04/08/24 07:00
Discharge Date and Time
Print Language: SAMI
[2024-04-08 09:13] VITALS: BP 117/74
[2024-04-08 10:00] VITALS: BP 106/51
== END 2024-04-08 10:00 | disposition home or self-care (01) ==
LOC: EMR 06:50
PROVIDERS: Physician Assistant; EMERGENCY PHYSICIAN Emergency Medicine
DX: R11.2 Nausea with vomiting, unspecified (principal); R10.84 Generalized abdominal pain; K59.4 Anal spasm; F41.9 Anxiety disorder, unspecified; F12.90 Cannabis use, unspecified, uncomplicated
CPT/HCPCS: 96374; 96375; 96361; 99284; 74177; 80053; 83690; 84703; 85025; Q9967

== ENCOUNTER 2024-04-09 19:37 | Emergency (ER) | payer OTHER, SELFPAY ==
[2024-04-09 19:59] LABS: % Basophils 0.4 % (0-2); % Eosinophils 0.8 % (0-6); % Immature Granulocytes 0.3 % (0-0.5); % Monocytes 6.4 % (1.7-9.3); % Neutrophils 76.1 % (42.2-75.2); Absolute Eosinophils 0.1 10^3/uL (0-0.7); Absolute Lymphocytes 1.7 10^3/uL (1.2-3.4); Absolute Monocytes 0.7 10^3/uL (0.1-0.6); Absolute Neutrophils 8.3 10^3/uL (1.4-6.5); Hematocrit 33.3 % (37.0-47.0); Hemoglobin 11.5 g/dL (12.0-16.0); Mean Corp Hgb Conc. 34.5 g/dL (33.0-37.0); Mean Corpuscular Hgb 31.8 pg (27.0-31.0); Mean Platelet Volume 10.3 fL (7.4-10.4); Nucleated Red Blood Cells % 0 %; Platelet Count 271 10^3/uL (130-400); Red Blood Cell Count 3.62 10^6/uL (4.20-5.40); Red Cell Dist. Width 13.6 % (11.5-14.5); White Blood Cell Count 10.9 10^3/uL (4.8-10.8)
[2024-04-09 20:09] LABS: HCG, Serum Qualitative Screen Negative
[2024-04-09 20:13] LABS: ALT (SGPT) 16 U/L (0-35); AST (SGOT) 22 U/L (14-36); Albumin 4.1 g/dl (3.5-5.0); Alkaline Phosphatase 63 U/L (38-126); Blood Urea Nitrogen 9 mg/dl (7-17); Calcium 9.7 mg/dl (8.4-10.2); Carbon Dioxide 22 mmol/L (22-30); Chloride 106 mmol/L (98-107); Glucose 103 mg/dl (70-99); Lipase 153 U/L (23-300); Potassium 3.6 mmol/L (3.5-5.1); Sodium 137 mmol/L (135-145); Total Bilirubin 0.4 mg/dl (0.2-1.3); Total Protein 6.8 g/dl (6.3-8.2); eGFR > 60.00
--- NOTE | 2024-04-09 20:30 | ED.GENMED ---
History of Present Illness
General
Chief Complaint: Abdominal Pain
Source: patient and records (CT abdomen pelvis performed yesterday no acute findings)
Exam Limitations: none
Time Seen by Provider: 04/09/24 20:17
Nursing documentation reviewed up to this point in time: agreed with
History of Present Illness
History of Present Illness:
28-year-old female presents emerged [facility] due to abdominal pain and rectal pain, which she has had multiple times. She was in the emergency department yesterday for the same thing. She reports rectal and abdominal pain, and throws her self
around in the wheelchair.
Past History
Past History
ED Past Medical History: Psychiatric (Anxiety, Bipolar, Depression, Schizophrenia. ) and Other (Ovarian)
ED Past Surgical History: Other (Jaw surgery)
Social History
Tobacco: Non-smoker
Alcohol: None
Drug: Marijuana
Personal:
Living: with family
Employment: Other
Family History
Family History: Other
Review of Systems
Review of Systems
Allergies reviewed?: Yes
All Other Systems: Not applicable
Constitutional: Reports no symptoms
EENT: Reports no symptoms
Respiratory: Reports no symptoms
Cardiac: Reports no symptoms
ABD/GI: Reports abdominal pain and vomiting
: Reports no symptoms
Musculoskeletal: Reports no symptoms
Skin: Reports no symptoms
Neurological: Reports no symptoms
Endocrine: Reports no symptoms
Hematologic/Lymphatic: Reports no symptoms
Psychiatric: Reports no symptoms
Phy Exam
Physical Exam
Physical Exam:
Physical Exam
General: Appears uncomfortable, afebrile
Neck: supple. no meningeal signs. normal posterior pharynx
Heart: s1/s2 regular rate and rhythm, no murmur. equal radial
pulses.
HEENT: Pupils equal round reactive to light, EOMI
Lungs: no acute respiratory distress. clear bilaterally
Abdomen: normal bowel sounds. not tender. no CVAT
Neuro: alert and oriented. no focal neurological deficits cranial nerves II through XII intact
Skin: no rash
Psychiatric: well kept. interactive and cooperative
Extremities: no edema. no calf tenderness. negative homans. good distal pulses
Course
Orders/Labs/Results
Orders:
Orders
04/09/24 19:42
Test Result ONCE
04/09/24 19:50
Complete Blood Count/With Diff Urgent
Comprehensive Metabolic Panel Urgent
HCG, Serum Qualitative Screen Urgent
Comment: Notify provider if positive test present
Lipase Urgent
04/09/24 20:27
Haloperidol Lactate [Haldol] 1 mg IV NOW STA
Lorazepam [Ativan] 1 mg IV NOW STA
04/09/24 20:47
Electrocardiogram (*1) Urgent
Reason for Study: Other
Other Reason for Exam: haldol
Cardiology Consult: Unknown
EKG- Treatment ONCE
Abnormal Lab Results
04/09/24
19:50
WBC 10.9 H 10^3/uL
(4.8-10.8)
RBC 3.62 L 10^6/uL
(4.20-5.40)
Hgb 11.5 L g/dL
(12.0-16.0)
Hct 33.3 L %
(37.0-47.0)
MCH 31.8 H pg
(27.0-31.0)
Absolute Neuts (auto) 8.3 H 10^3/uL
(1.4-6.5)
Absolute Monos (auto) 0.7 H 10^3/uL
(0.1-0.6)
Neutrophils % 76.1 H %
(42.2-75.2)
Lymphocytes % 16.0 L %
(20.5-51.1)
Glucose 103 H mg/dl
(70-99)
04/09/24 19:50
04/09/24 19:50
Vital Signs
Initial and Last Documented VS:
Initial Vital Signs
Temp Pulse Resp Pulse Ox
98.2 F 94 18 99
04/09/24 19:39 04/09/24 19:39 04/09/24 19:39 04/09/24 19:39
Last Documented Vital Signs
Temp Pulse Resp Pulse Ox
98.2 F 94 18 98
04/09/24 19:39 04/09/24 19:39 04/09/24 19:39 04/09/24 21:33
MDM/Problems Addressed
Differential Diagnosis Includes:
Obstruction, appendicitis, hyperemesis
MDM/Problems Addressed:
20-year-old female with nausea vomiting abdominal pain. Abdomen exam benign. Patient improved after IV Haldol. Doubt appendicitis or bowel obstruction. Negative CT scan and labs yesterday as well. Likely cannabis hyperemesis. Stable for
discharge.
Chronic conditions affecting care: Psychiatric illness (Anxiety, bipolar)
*Pulse Oximetry
Patient hypoxic: no
*Critical Care Note
Total Time (30-74mins, 75-104mins- exclusive of procedures): Not Applicable
Data Reviewed
Review of Other/Old Records Reveals: Radiology Studies (ct a/p from 04/08/24 nad)
Source: records
Further Testing Considered But Not Given:
ct a/p not indicated
Patient Management
Social determinants of health affecting care: Living situation and Substance abuse (marijuana use)
Escalation/DeEscalation of care consider admission/obs:
admit not indicated
ED Attending Note
-
Portions of this chart may have been created with voice recognition software.� Occasional wrong word or��sound alike� substitutions may have occurred due to the inherent limitations of voice recognition software.
Discharge Plan
Departure
Patient Disposition: Home (Routine Discharge)
Date of Disposition: 04/09/24
Time of Disposition: 22:03
Patient with high blood pressure during this ER visit?: No
Condition: Good
Discharge Problem:
Vomiting, Abdominal pain
Instructions: Nausea and Vomiting, Adult (DC), Abdominal Pain
Prescriptions:
No Action
trazodone 100 mg Tablet
100 mg PO HS
pantoprazole [Protonix] 40 mg Tablet,Delayed Release (Dr/Ec)
40 mg PO DAILY
risperidone 2 mg Tablet
2 mg PO BID
ondansetron 4 mg tablet,disintegrating
4 mg PO Q8H PRN (Reason: nausea and vomiting) Qty: 7 0RF
naproxen 500 mg tablet
500 mg PO BID PRN (Reason: Pain) Qty: 10 0RF
pantoprazole [Protonix] 20 mg tablet,delayed release (DR/EC)
20 mg PO DAILY 7 Days Qty: 7 0RF
ondansetron 4 mg tablet,disintegrating
4 mg PO TIDPRN PRN (Reason: nausea/vomiting) Qty: 10 0RF
ondansetron 4 mg tablet,disintegrating
4 mg PO Q8H PRN (Reason: nausea and vomiting) 2 Days Qty: 4 0RF
Metamucil 3.4 gram/5.4 gram powder
1 tbsp PO DAILY Qty: 660 0RF
polyethylene glycol 3350 [Miralax] 17 gram/dose powder
4 g PO DAILY PRN (Reason: Constipation) Qty: 119 0RF
Referrals:
UNKNOWN - PT DOES,NOT KNOW [Family Provider] -
Interventions
Interventions:
*Risk Screen - Suicide Last Done: 04/09/24 19:39
*General Assessment Last Done: 04/09/24 20:26
ED- Fall Risk Assessment Last Done: 04/09/24 21:33
*ED COVID-19 Vaccine History Last Done: 04/09/24 20:26
ND-Bzwfvx-Qumqagbvkd Assessment Last Done: 04/09/24 21:33
Discharge Date and Time
Print Language: BELGIAN
[2024-04-09] MEDS: ATIVAN 1 MG IV ×2 (20:45→22:22)
[2024-04-09] MEDS: HALDOL 1 MG IV (20:46)
[2024-04-09 22:30] VITALS: BP 123/72
[2024-04-10 01:03] VITALS: BP 129/95
== END 2024-04-10 01:40 | disposition home or self-care (01) ==
LOC: EMR 19:37
PROVIDERS: EMERGENCY PHYSICIAN Emergency Medicine
DX: R10.9 Unspecified abdominal pain (principal); R11.10 Vomiting, unspecified; K62.89 Other specified diseases of anus and rectum; F31.9 Bipolar disorder, unspecified; F41.9 Anxiety disorder, unspecified; F20.9 Schizophrenia, unspecified; F32.A Depression, unspecified
CPT/HCPCS: 99284; 96374; 96375; 96376; 80053; 83690; 84703; 85025